=== PATIENT | female | born 1955 | race Hispanic/Latino ===

== ENCOUNTER → 2019-05-22 11:54 | Outpatient (CLI) | payer MEDICARE, SELFPAY ==
[2019-05-22 14:24] LABS: Anion Gap 7 (5-15); BUN 17 mg/dL (7-18); BUN/Creat Ratio 25.1 RATIO (10-20); Calcium,Total 9.4 mg/dL (8.5-10.1); Chloride 109 mmol/L (98-107); Creatinine, Serum 0.68 mg/dL (0.55-1.02); EST Glomerular Filtration Rate 93 mL/min (>60); Est Glom Filt Rate - Afr Amer 112 mL/min (>60); Glucose 92 mg/dL (74-106); Magnesium 2.5 mg/dL (1.6-2.6); Potassium 4.1 mmol/L (3.5-5.1); Sodium Level 144 mmol/L (136-145)
== END ==
PROVIDERS: Family Provider Family Medicine; PCP Family Medicine; Referring Provider Family Medicine; Visit Provider Nurse Practitioner Family
DX: R25.2 Cramp and spasm (principal)
CPT/HCPCS: 36415; 80048; 83735

== ENCOUNTER → 2019-06-18 16:43 | Outpatient (CLI) | payer MEDICARE, MEDICAID, SELFPAY ==
--- NOTE | 2019-06-18 16:53 | RAD_ITS ---
STUDY: X-RAY - RIGHT TIBIA AND FIBULA REASON FOR EXAM: Female, 64 years old. Injury 11 days ago TECHNIQUE: 2 view(s) of the tibia and fibula were obtained. COMPARISON: None. FINDINGS: Normal visualized tibia. Normal visualized fibula. The soft tissue structures are unremarkable. RAD/Tibia & Fibula 2 Views IMPRESSION: Normal x-ray examination of the tibia and fibula. Electronically Signed: Gideon Barrera MD at 23:29 EDT , Service support ,
--- NOTE | 2019-06-18 16:53 | RAD_ITS ---
STUDY: X-RAY - RIGHT ANKLE REASON FOR EXAM: Female, 64 years old. Injury 11 days ago TECHNIQUE: 3 view(s) of the ankle. COMPARISON: None. FINDINGS: Normal visualized distal tibia and fibula. Normal medial and lateral malleoli. Normal tibiotalar articulation and ankle mortise. Normal visualized talus and calcaneus. The visualized subtalar, talonavicular, calcaneocuboid and tarsal articulations are normal. There is soft tissue swelling over the lateral malleolus. RAD/Ankle min 3 Views IMPRESSION: There is no evidence of fracture, dislocation, or significant degenerative disease. There is soft tissue swelling over the lateral malleolus. Electronically Signed: Gideon Barrera MD at 23:28 EDT , Service support ,
== END ==
PROVIDERS: Family Provider Family Medicine; PCP Family Medicine; Referring Provider Family Medicine; Visit Provider Family Medicine
DX: S93.401A Sprain of unspecified ligament of right ankle, initial encounter (principal)
CPT/HCPCS: 73590; 73610

== ENCOUNTER 2019-07-06 16:52 | Emergency (ER) | payer MEDICARE, MEDICAID, SELFPAY ==
[2019-07-06 16:54] VITALS: BP 140/72; PULSE 81; RESP 17; TEMP 36.2; O2SAT 98; BMI 25.5
--- NOTE | 2019-07-06 17:05 | ED.VIS.GEN ---
History of Present Illness Chief Complaint: Lower Extremity Injury Detail of Chief Complaint: Left leg pain Informant: Patient, Family Onset: Today Current Severity: Mild Maximum Severity: Mild Narrative: Patient presents with pain and swollen veins to the left leg. She was on a 2 and half hour car ride today. During the car ride she felt a sharp pain over the lateral proximal calf. She states the veins seem to be swollen more than normal or slightly tender. She denies personal history of blood clot. Her mother did have blood clots. She denies chest pain or shortness of breath. Past Medical History - Allergies and Home Meds Allergies/Adverse Reactions: Allergies Iodinated Contrast Media [CONTRASTS] Allergy (Verified 07/06/19 16:54) Itching pollen extracts Allergy (Verified 07/06/19 16:54) Other sulfamethoxazole [From Bactrim] Adverse Reaction (Verified 07/06/19 16:54) Upset Stomach trimethoprim [From Bactrim] Adverse Reaction (Verified 07/06/19 16:54) Upset Stomach Primary Care Physician: Benito Munoz MD [Primary Care Provider] - Prior records reviewed: Yes Past Medical History: - - Reviewed Lives: Spouse/ Significant Other Smoking Status: Never smoker Review of Systems General: Denies: Chills, Fever Eyes: Denies: Visual changes - bilaterally ENT: Denies: Bilateral ear pain Cardiovascular: Denies: Chest pain, Palpitations Respiratory: Denies: Dyspnea Gastrointestinal: Denies: Abdominal pain, Nausea, Vomiting Musculoskeletal: Reports: Myalgias, Extremity Pain Neurological: Denies: Headache Hematologic: Denies: Easy bruising, Easy bleeding Allergy: Denies: Uticaria Physical Exam Vital Signs/Narrative: Vital Signs Temp Pulse Resp BP Pulse Ox 07/06/19 16:54 97.1 F L 81 17 140/72 H 98 Inital Vital Signs reviewed: Yes General: Well nourished, Well developed Head: Normocephalic ENT: Moist mucous membranes Neck: Supple Cardiovascular: Regular rate, Regular rhythm Respiratory: No distress, CTA bilaterally Abdomen: Soft, Nontender Extremities: Tenderness - Mild tenderness to the lateral proximal left calf with dilated varicose veins. No erythema. She has strong distal pulses. No joint tenderness. Skin: Normal color Neurological: Alert, Oriented x3 Psychological: Normal affect Diagnostic/Tx/Re-eval Laboratory Results 07/06/19 17:10 D-Dimer Quant (PE/DVT) 0.39 - Medical Decision Making Patient presents after hours on a weekend I do not have ultrasound available. D-dimer was obtained and is negative. For peace of mind, patient will return tomorrow for an outpatient ultrasound. In light of her d-dimer being normal we will not give her any anticoagulants at this time. She is happy with this plan. ED Disposition - Plan for ED Patient: Disposition: Home or Assisted Living Diagnosis: Leg edema Instructions: ED Peripheral Edema, Unilateral Referrals: Benito Munoz MD [Primary Care Provider] - Additional Instructions: Return tomorrow for outpatient ultrasound of your leg as discussed.
[2019-07-06 17:33] LABS: D-Dimer Quantitative (DVT/PE) 0.39 FEU/ug/m (0.27-0.49)
--- NOTE | 2019-07-06 17:52 | VDLE_ITS ---
Reason For Study: PAIN RIGHT LEFT CFV is compressible, spontaneous, phasic, GSV is normal. competent and demonstrates normal CFV is compressible, spontaneous, phasic, augmentation. competent, and demonstrates normal Procedure augmentation. Exam performed in department. FV is compressible, spontaneous, phasic, A preliminary report was called and/or faxed competent and demonstrates normal to ED. augmentation. POP V is compressible, spontaneous, phasic, competent and demonstrates normal augmentation. T/P Trunk is compressible. PTV is compressible. Left PeroV at distal T/P Juntion is partially compressible with echoes consistent with acute on chronic localized DVT. The remainder of the PeroV is compressible. Interpretation Summary Acute and chronic deep vein thrombosis is noted in the proximal left peroneal vein. The remainder of the left lower extremity deep venous system is patent and compressible. Valvular competence appears intact within the proximal deep venous system on the left . The left great saphenous vein appears patent and compressible segmentally. Ordering Physician: Sol Holt Referring Physician: MALKA RODRIGUEZ Performed By: Maryse Hensley, LIANGCS, RVT
== END 2019-07-06 18:01 | disposition home or self-care (01) ==
PROVIDERS: Emergency Provider Emergency Medicine; Family Provider Family Medicine; PCP Family Medicine
DX: R60.0 Localized edema (principal); I83.92 Asymptomatic varicose veins of left lower extremity; Z88.1 Allergy status to other antibiotic agents; Z88.2 Allergy status to sulfonamides; Z88.8 Allergy status to other drugs, medicaments and biological substances
CPT/HCPCS: 85379; 93971; 99282

== ENCOUNTER 2019-07-07 12:04 | Emergency (ER) | payer MEDICARE, MEDICAID, SELFPAY ==
[2019-07-06 16:54] VITALS: BMI 25.5
[2019-07-07 12:05] VITALS: BP 140/88; PULSE 84; RESP 16; TEMP 36.6; O2SAT 99; BMI 26.6
--- NOTE | 2019-07-07 12:38 | ED.DCSUM_ITS ---
- ER Visit Summary Date of Service: 07/07/19 Chief Complaint: Clot behind left knee History of Present Illness: The patient is a 64 F who has a #2 department. Patient was lower extremities today. Lab is being performed to test called me and told me the left peroneal vein at the distal junction is partially compressible with echoes consistent with acute on chronic localized DVT. I discussed this with the patient and she is never had a clot before she is aware of. She had no recent travel or surgery. No mobilization. Denies any chest pain or shortness of breath. Physicial Exam : Older female no acute distress. Vital signs are stable. Afebrile. Pulse ox 91% room air no signs of hypoxia. HEENT exam unremarkable. Neck nontender. Lungs clear to auscultation bilaterally. Heart is regular rhythm no murmur. Abdomen is soft and nontender. Normal bowel sounds no perit montoya signs. Extremities moves all 4. Neurovascular intact. Calves nontender without edema or cords. There is a varicose vein in the left lateral aspect of her left knee. Mild tenderness. There is no significant edema. No calf tenderness or cords, no edema. Otherwise. Both feet are neurovascular intact. Neurologically she is awake and alert. Test Results: Noninvasive study left lower extremity shows a left peroneal vein at the distal to UPJ junction partially compressible of echoes consistent with acute on chronic localized DVT per the dental technician instructor. Emergency Department Course and Treatment: Patient has a left lower extremity DVT. She will be started on Xarelto 15 twice daily for 3 weeks. And then started on 20 mg a day. Follow-up with primary care physician. Warned of bleeding risks and if any head injury to be evaluated. Treatment Plan: Xarelto twice daily for 20 days and then 20 mg a day after that. Follow-up with your doctor. Disposition: Discharge Impression: Left lower extremity DVT This note was generated with [employer] dictation software. It may contain incorrect words, spelling, and punctuation that were not noted in review of the chart prior to signing ED Disposition - Plan for ED Patient: Referrals: Benito Muonz MD [Primary Care Provider] -
--- NOTE | 2019-07-07 12:42 | ED.DEP ---
ED Disposition - Plan for ED Patient: Disposition: Home or Assisted Living Instructions: Dvt Prescriptions: Rivaroxaban [Xarelto] 15 mg PO BID.TCU 21 Days #42 tab Prescription Printed Referrals: Benito Munoz MD [Primary Care Provider] - As soon as possible Additional Instructions: You have a blood clot behind her left knee. Due to the blood clot you will be started on a blood thinner called Xarelto. He will take 1 pill twice a day for the first 21 days. Then after day 21 beginning on the you will take 1 pill a day. Initially it will be 15 mg twice a day then the medication be changed on the third week to 20 mg once a day. Call and follow-up with your primary care physician. If you start bleeding and unable to stop the need to return the ER. If you would fall and hit your head he would need to be seen in the ER due to being on a blood thinner.
[2019-07-07] MEDS: Rivaroxaban 15 MG Tablet PO (13:12)
== END 2019-07-07 13:16 | disposition home or self-care (01) ==
PROVIDERS: Emergency Provider Emergency Medicine; Family Provider Family Medicine; PCP Family Medicine
DX: I82.402 Acute embolism and thrombosis of unspecified deep veins of left lower extremity (principal)
CPT/HCPCS: 99283

== ENCOUNTER → 2019-07-25 10:56 | Outpatient (CLI) | payer MEDICARE, MEDICAID, SELFPAY ==
[2019-07-07 12:05] VITALS: BMI 26.6
--- NOTE | 2019-07-25 10:59 | ECHOD_ITS ---
Reason For Study: CP Procedure This was a 2D Doppler, Color Flow transthoracic echocardiogram. Exam performed in department. Left Ventricle Normal LV size. The estimated ejection fraction is 70 %. No evidence for diastolic dysfunction. No regional wall motion abnormalities noted. Right Ventricle Normal right ventricle. Normal systolic function. Atria Normal left atrium. Normal right atrium. No doppler evidence for ASD. Mitral Valve There is no mitral valve stenosis. Mild (1+) mitral valve insufficiency. Tricuspid Valve There is no tricuspid stenosis. Mild tricuspid valve insufficiency. Pulmonary artery systolic pressure is 30 mmHg. Aortic Valve Aortic sclerosis, no stenosis. Trisinus/trileaflet aortic valve. There is no aortic stenosis. Mild (1+) aortic valve insufficiency. Pulmonic Valve There is no pulmonic valvular stenosis. Trivial pulmonic valve insufficiency. Great Vessels Normal aortic root. Pericardium/Pleural Moderate pericardial effusion. There are no echocardiographic indications of cardiac tamponade. MMode/2D Measurements & Calculations LVIDd: 3.3 cm IVSd: 1.2 cm LA dimension: 3.0 cm LVIDs: 1.6 cm LVPWd: 1.2 cm FS: 50.5 % LAV(MOD-bp): 33.6 ml LA A4 area: 13.9 cm2 RA A4 area: 15.6 cm2 LAV(MOD-bp) Indexed: 20.7 ml/m2 LAV(MOD-sp2): 30.6 ml LAV(MOD-sp4): 32.7 ml Time Measurements MV dec time: 0.28 sec Doppler Measurements & Calculations MV E max taurus: 69.0 cm/sec Lat Peak E' Taurus: 9.0 cm/sec Med Peak E' Taurus: 7.6 cm/sec MV A max taurus: 86.8 cm/sec E/E' lat: 7.7 E/E' med: 9.1 MV E/A: 0.80 MV V2 max: 90.6 cm/sec MV P1/2t max taurus: 80.9 cm/sec Ao V2 max: 201.6 cm/sec MV max P.3 mmHg MV P1/2t: 84.7 msec Ao max P.3 mmHg MV V2 mean: 53.8 cm/sec MV dec slope: 279.5 cm/sec2 MV mean P.3 mmHg MVA(P1/2t): 2.6 cm2 MV V2 VTI: 23.7 cm AI max taurus: 504.7 cm/sec LV V1 max: 123.9 cm/sec PA V2 max: 119.4 cm/sec AI max P.9 mmHg LV V1 max P.1 mmHg AI dec slope: 466.8 cm/sec2 AI P1/2t: 316.7 msec TR max taurus: 248.5 cm/sec TR max P.7 mmHg Interpretation Summary The estimated ejection fraction is 70 %. No evidence for diastolic dysfunction. Mild (1+) mitral valve insufficiency. Mild (1+) aortic valve insufficiency. Moderate pericardial effusion. There are no echocardiographic indications of cardiac tamponade. Ordering Physician: Nikita Jacob Referring Physician: Nikita Jacob Performed By: Benjamín Baum RCS
== END ==
PROVIDERS: Family Provider Family Medicine; PCP Family Medicine; Referring Provider Family Medicine; Visit Provider Family Medicine
DX: R07.9 Chest pain, unspecified (principal)
CPT/HCPCS: 93306

== ENCOUNTER → 2019-08-06 10:40 | Outpatient (CLI) | payer MEDICARE, MEDICAID, SELFPAY ==
[2019-08-05 13:33] VITALS: BMI 25.0
[2019-08-06 12:35] LABS: Absolute Lymphocyte Count 1.21 X10^3/uL (0.83-4.51); Basophil# 0.04 X10^3/uL; Basophil% 1.1 % (0-1); Eosinophil# 0.22 X10^3/uL; Eosinophils% 5.9 % (0-5); Hematocrit 40.5 % (37-47); Hemoglobin 12.8 g/dL (12.0-15.0); Lymphocyte # 1.21 X10^3/ul (4.0); Lymphocyte % 32.4 % (19-41); Mean Corp Hgb Conc 31.6 g/dL (32-36); Mean Corpuscular Hgb 28.6 pg (27.0-32.0); Mean Corpuscular Volume 90.6 fL (81-99); Mean Platelet Vol. 9.8 fl (6.2-12.0); Monocyte# 0.28 X10^3/uL; Monocyte% 7.5 % (0-10); NRBC Flagged by Analyzer 0 % (0-5); Neutrophil # 1.99 X10^3/uL (2.7-7.7); Neutrophil % 53.1 % (47-70); Platelet Count 316 K/mm3 (150-450); RBC Distribution Width CV 13.6 % (11.6-14.6); RBC Distribution Width SD 45.4 fl (35.1-43.9); Red Blood Count 4.47 M/mm3 (4.2-5.4); White Blood Count 3.7 K/mm3 (4.4-11.0)
[2019-08-06 12:43] LABS: Erythrocyte Sedimentation Rate 10 mm/hr (0-30)
[2019-08-06 13:07] LABS: Vitamin B12 504 pg/mL (211-911); Vitamin D,25 Hydroxy 31.7 ng/mL (29.95-100.01)
[2019-08-06 13:11] LABS: ALB/GLOB Ratio 1.1 RATIO (0.9-2.4); AST(SGOT) 17 U/L (15-37); Alanine Aminotransfer ALT/SGPT 22 U/L (13-56); Albumin, Serum 3.8 g/dL (3.2-5.0); Alkaline Phosphatase 61 U/L (45-117); Anion Gap 5 (5-15); BUN 17 mg/dL (7-18); BUN/Creat Ratio 24.4 RATIO (10-20); Calcium,Total 8.7 mg/dL (8.5-10.1); Chloride 110 mmol/L (98-107); EST Glomerular Filtration Rate 89 mL/min (>60); Est Glom Filt Rate - Afr Amer 108 mL/min (>60); Ferritin 14 ng/mL (8-252); Globulin 3.4 g/dL (2.2-4.2); Glucose 124 mg/dL (74-106); Iron 106 ug/dL (50-170); Potassium 3.7 mmol/L (3.5-5.1); Protein, Total 7.2 g/dL (6.4-8.2); Sodium Level 141 mmol/L (136-145); Thyroid Stim Hormone (TSH) 1.25 uIU/mL (0.358-3.74)
[2019-08-07 15:22] LABS: ANTINUCLEAR ANTIBODIES DIRECT Negative (Negative)
== END ==
PROVIDERS: Family Provider Family Medicine; PCP Family Medicine; Referring Provider Family Medicine; Visit Provider Family Medicine
DX: R53.83 Other fatigue (principal); L65.9 Nonscarring hair loss, unspecified
CPT/HCPCS: 36415; 80053; 82306; 82607; 82728; 83540; 84443; 85025; 85652; 86038

== ENCOUNTER 2019-08-13 10:30 | Outpatient (RCR) | payer MEDICARE, MEDICAID, SELFPAY ==
--- NOTE | 2019-08-02 13:12 | HP.PTEVAL_ITS ---
Patient's Visit Information SHARON SAMANIEGO is a 64 year old F referred to Physical Therapy by BRI Martinez with a diagnosis of NECK PAIN. Date of Evaluation: 08/02/19 Physical Therapist: Lina Buchanan PT, Cert MDT - Visit Plan Frequency: 2-3x /Week Duration: 4-6 Weeks Plan: ULTRASOUND TO CERVICAL REGION IF OK'D BY TRAVOGRAPH OPERATOR MONDAY. STM AND GENTLE MANUAL TRACTION TOLERATED. POSTURE CORRECTION/STRENGTHENING, INSTRUCTION IN APPROPRIATE BODY MECHANICS AND ACTIVITY MODIFICATIONS. MARGARET UE ROM, STRETCHING AND STRENGTHENING. HEP INSTRUCTION. - Subjective Findings: Work/Leisure: RETIRED. Disability: NO. Present symptoms: NECK AND MARGARET SHOULDER PAIN. HEADACHES. SOMETIMES TREAVELS DOWN BACK. Present since: ABOUT 6 MONTHS. Pain Scale: Worst - 8/10 Least - 3/10. Currently: 7/10. Co mmenced as a result of: NO APPARENT REASON OTHER THAN MAYBE A FALL ABOUT A YEAR AGO - SHOOK BODY. Symptoms at onset: NECK. Worse: DRIVING, LOOKING RIGHT AND LEFT. Better: RELAXING IN SITTING, LYING DOWN, GENTLE MVMT. Disturbed sleep: YES. Previous history/Previous treatment: UNREMARKABLE. Dizziness: YES. Tinnitis: NO. Nausea: NO. Shortness of Breath: YES. Difficulty Swollowing: SOMETIMES. Gait: NORMAL. Accidents: NO. Unexplained weight loss: NO. Imaging: PATIENT DOES NOT THINK SO. PMH/Recent major surgery: LEFT THR ABOUT 2016. *OTHER* RECENT LEFT LE BLOOD CLOT DX'D ABOUT 3 WEEKS AGO. UPCOMING CRISTIANO'T WITH TRAVOGRAPH OPERATOR FOR FLUIT AROUND HEART NEXT MONDAY. ON BLOOD THINNERS. - Objective Sitting Posture/Standing Posture: POOR. FORWARD HEAD AND ROUNDED SHOULDERS. NO TORTICOLLIS. Active Correction of posture: BETTER. Other Observations: INDEP GAIT AND TRANSFERS. Motor deficit: MARGARET UE'S 5/5 EXCEPT SHOULDERS 4/5. Sensory deficit: MARGRAET UE LIGHT TOUCH SENSATION IS INTACT AND SYMMTRICAL. ROM deficit: MARGARET UE'S WFL. Reflexes: 2/3 MARGARET UE'S. Dural Signs: NEGATIVE MARGARET UE'S. Cervical Mvmt Loss: Flex: NIL. Pro: NIL. Ext: MOD. Ret: RIC. RSB: MOD. LSB: MOD. R Rot: MOD. L Rot: MOD. Postural strength: POOR. Palpation: MILD TENDERNESS WITH PALPATION OF THE ENTIRE CERVICAL SPINE REGION. DISTRACTION: DISTRACTION TESTING OF THE CERVICAL SPINE IN SITTING RESULTS IN DECREASED C/O PAIN. - Goals Goal 1:: DECREASE C/O NECK PAIN Goal Time Frame: 4-6 Weeks Goal 2:: IMPROVE LIFTING, READING, SLEEP, WORK, DRIVING AND RECREATIONAL FUNCTION Goal Time Frame: 4-6 Weeks Goal 3:: INSTRUCT IN PROPHYLAXIS Goal Time Frame: 4-6 Weeks - Rehabilitation Potential Rehabilitation Potential: Good - Anticipated Interventions Patient/Client Instruction: Educate patient on: Condition, Plan of Care, Risk Factors, Benefits of Fitness Program For the Purpose of:: To improve self management Therapeutic Exercise to Include: Strength training, Body mechanics, Postural training, Flexibilty training, Active ROM, Scapular Strength/Stabilization For the Purpose of:: To decrease pain, To increase ROM, To improve muscle performance and motor function, To increase tolerance to activity/condition/position, To improve ability of physical actions for home/community/work/leisure Manual Therapy Techniques to Include: Soft tissue mobilization For the Purpose of:: To decrease pain, To increase ROM, To improve nutrient delivery to tissue Cryotherapy (ice pack, ice massage): Yes Thermo therapy (hot pack): Yes Ultrasound (thermal/non thermal): Yes For the Purpose of:: To decrease pain, To decrease swelling/inflammation, To increase ROM, To improve nutrient delivery to tissue Thank you for the opportunity to evaluate your patient. For Medicare and Medicare HMO plans, please review the plan of care and approve it. It will need to be FAXED BACK to us at [phone] for Medicare purposes. For Medicare only, by signing this I certify the plan of care. Please let me know if there are questions or concerns regarding this plan of care. Physician Signature: Date:
--- NOTE | 2019-09-12 15:07 | HP.PT.NRP ---
HP - Discharge Summary (1) - Patient Information SHARON SAMANIEGO was seen in my office for initial evaluation on 08/02/19. The following Plan of Care was established for this patient: Initial Frequency: 2-3x /Week Initial Duration: 4-6 Weeks - Anticipated Interventions Patient/Client Instruction: Educate patient on: Condition, Plan of Care, Risk Factors, Benefits of Fitness Program For the Purpose of:: To improve self management Therapeutic Exercise to Include: Strength training, Body mechanics, Postural training, Flexibilty training, Active ROM, Scapular Strength/Stabilization For the Purpose of:: To decrease pain, To increase ROM, To improve muscle performance and motor function, To increase tolerance to activity/condition/position, To improve ability of physical actions for home/community/work/leisure Manual Therapy Techniques to Include: Soft tissue mobilization For the Purpose of:: To decrease pain, To increase ROM, To improve nutrient delivery to tissue Cryotherapy (ice pack, ice massage): Yes Thermo therapy (hot pack): Yes Ultrasound (thermal/non thermal): Yes For the Purpose of:: To decrease pain, To decrease swelling/inflammation, To increase ROM, To improve nutrient delivery to tissue This patient was last seen in our office 07/31/19. Pertinent comments regarding their Physical therapy will appear below: This patient has not returned to Physical Therapy and is appropriate to return to MD for further follow-up as needed. At this point I will be discontinuing this patient from physical therapy. I would be happy to see this patient again in the future if found appropriate by the physician. Thank you! Lina Buchanan, PT, Cert MDT
== END 2019-08-13 19:00 | disposition home or self-care (01) ==
LOC: PT 10:30
PROVIDERS: Family Provider Family Medicine; PCP Family Medicine; Referring Provider Nurse Practitioner Adult Health; Visit Provider Nurse Practitioner Adult Health
DX: M54.2 Cervicalgia (principal)
CPT/HCPCS: 97035; 97162; 97530

== ENCOUNTER → 2019-09-12 07:01 | Outpatient (CLI) | payer MEDICARE, MEDICAID, SELFPAY ==
[2019-08-05 13:33] VITALS: BMI 25.0
[2019-08-28 10:54] VITALS: BMI 25.0
--- NOTE | 2019-09-12 07:03 | ECHOL_ITS ---
Reason For Study: PERICARDIAL EFFUSION Procedure This was a limited 2D transthoracic echocardiogram. Left Ventricle Normal size and thickness. The estimated ejection fraction is 65 %. No regional wall motion abnormalities noted. Right Ventricle Normal RV size. Normal systolic function. Atria Normal left atrium. Normal right atrium. No doppler evidence for ASD. Aortic Valve Trisinus/trileaflet aortic valve. Great Vessels Normal aortic root. Pericardium/Pleural Small pericardial effusion. MMode/2D Measurements & Calculations LVIDd: 4.2 cm IVSd: 0.85 cm Ao root diam: 3.1 cm LVIDs: 2.4 cm LVPWd: 0.87 cm LA dimension: 3.2 cm FS: 42.2 % LAV(MOD-bp): 38.7 ml LA A4 area: 15.9 cm2 RA A4 area: 15.9 cm2 LAV(MOD-bp) Indexed: 23.8 ml/m2 LAV(MOD-sp2): 30.0 ml LAV(MOD-sp4): 45.7 ml Interpretation Summary The estimated ejection fraction is 65 %. Small pericardial effusion. Limited echo done to evaluate pericardial effusion shows no significant change in effusion. Ordering Physician: Kris Barrera Referring Physician: Moshe Jacob Performed By: Ely Moeller, KYLER, RVT
--- NOTE | 2019-09-17 17:10 | STRESSREP ---
Stress Test Report Date: [09/12/2019] Procedure: Pharmacologic stress nuclear imaging study Indications: Chest pain Consent: Per the patient Procedure: The patient underwent pharmacologic (Regadenoson) evaluation with a peak heart rate of 96 beats per minute (62 %predicted maximal heart rate) and a peak blood pressure of 130/74 mmHg. The baseline ECG demonstrated normal sinus rhythm. EKG during lexiscan infusion revealed no significant ischemic changes. EKG post infusion revealed no significant ischemic changes [There were no cardiac dysrhythmias pretest, during pharmacologic infusion, or recovery]. [There was no complaint of chest discomfort during pharmacologic infusion or recovery]. The examination was discontinued secondary to completion of protocol. Impression: 1. Lexiscan stress test test is negative for Lexiscan infusion induced EKG changes of ischemia. 2. Lexiscan stress test test is negative for Lexiscan infusion induced chest pain. 3. Results of the nuclear portion of the test is as below Myocardial perfusion imaging study: Technique: The patient was injected with 10.8 millicuries of technetium 99m Cardiolite and subsequently rest SPECT Cardiolite nuclear imaging was obtained in the horizontal long, vertical long, and short axis views. The patient underwent pharmacologic (Regadenoson) evaluation. Please see above for details. The patient was injected with 32.1 millicuries of technetium 99m Cardiolite and subsequently stress SPECT Cardiolite nuclear imaging was obtained in the horizontal long, vertical long, and short axis views. A gated Cardiolite study at peak stress was obtained. Interpretation: Rest and stress SPECT Cardiolite nuclear imaging status post realignment, normalization, and attenuation correction demonstrate normal myocardial radioisotope uptake. Gated images reveal no significant regional wall motion abnormalities. The reported LVEF is greater than 70 %. Impression: 1. There is no evidence of significant ischemia or infarction. 2. Estimated ejection fraction is greater than 70%. This note was generated with [employer] software. It may contain incorrect words, spelling, and punctuation that were not noted in checking the note before signing.
== END ==
PROVIDERS: Family Provider Family Medicine; PCP Family Medicine; Referring Provider Specialist; Visit Provider Specialist
DX: R07.9 Chest pain, unspecified (principal); I31.3 Pericardial effusion (noninflammatory); I35.1 Nonrheumatic aortic (valve) insufficiency
CPT/HCPCS: 78452; 93017; 93308; A9500; A4216; J2785

== ENCOUNTER → 2019-10-02 12:40 | Outpatient (CLI) | payer MEDICARE, MEDICAID, SELFPAY ==
[2019-09-18 11:27] VITALS: BMI 25.2
[2019-10-02 14:25] LABS: Absolute Neutrophil Count 2.4 X10^3/uL (2.0-7.7); Basophil# 0.03 X10^3/uL; Basophil% 0.7 % (0-1); Eosinophil# 0.12 X10^3/uL; Eosinophils% 2.9 % (0-5); Hematocrit 40.8 % (37-47); Hemoglobin 13.5 g/dL (12.0-15.0); Lymphocyte % 28.9 % (19-41); Mean Corp Hgb Conc 33.1 g/dL (32-36); Mean Corpuscular Hgb 29.9 pg (27.0-32.0); Mean Corpuscular Volume 90.3 fL (81-99); Mean Platelet Vol. 9.9 fl (6.2-12.0); Monocyte# 0.35 X10^3/uL; Monocyte% 8.4 % (0-10); NRBC Flagged by Analyzer 0 % (0-5); Neutrophil # 2.44 X10^3/uL (2.7-7.7); Neutrophil % 58.9 % (47-70); Platelet Count 289 K/mm3 (150-450); RBC Distribution Width SD 46.3 fl (35.1-43.9); Red Blood Count 4.52 M/mm3 (4.2-5.4); White Blood Count 4.2 K/mm3 (4.4-11.0)
[2019-10-02 14:30] LABS: Prothrombin Time (Protime)PT. 13.3 SECONDS (11.7-14.9)
[2019-10-02 14:31] LABS: Erythrocyte Sedimentation Rate 13 mm/hr (0-30); Partial Thromboplast Time 25.8 Seconds (24.1-36.2)
[2019-10-02 14:54] LABS: Vitamin D,25 Hydroxy 35.6 ng/mL (29.95-100.01)
[2019-10-02 14:57] LABS: Anion Gap 6 (5-15); BUN 18 mg/dL (7-18); BUN/Creat Ratio 27.1 RATIO (10-20); CRP < 2.90 mg/L (0.0-3.0); Calcium,Total 8.6 mg/dL (8.5-10.1); Chloride 108 mmol/L (98-107); Creatinine, Serum 0.66 mg/dL (0.55-1.02); EST Glomerular Filtration Rate 94 mL/min (>60); Est Glom Filt Rate - Afr Amer 114 mL/min (>60); Ferritin 37 ng/mL (8-252); Glucose 112 mg/dL (74-106); Potassium 3.9 mmol/L (3.5-5.1); Rheumatoid Factor < 10.0 IU/mL (<15); Sodium Level 139 mmol/L (136-145)
[2019-10-05 13:16] LABS: ANTINUCLEAR ANTIBODIES DIRECT Positive (Negative)
[2019-10-08 04:07] LABS: Complement CH50 56 U/mL (42-999999); Dilute Prothrombin Time (dPT) 38.7 sec (0.0-55.0); Dilute Russell Viper Venom 33.7 sec (0.0-47.0); PTT-LA 29.4 sec (0.0-51.9); Thrombin Time 18.7 sec (0.0-23.0); dPT Confirm Ratio 1.03 Ratio (0.00-1.40)
[2019-10-08 12:54] LABS: Anti-Cardiolipin Ab, IgG, Qn < 9 GPL U/mL (0-14); Anti-Cardiolipin Ab, IgM, Qn < 9 MPL U/mL (0-12); Antithrombin 3 Function 105 % (75-135); Interpretation Comment: (.); Protein C Antigen 113 % (60-150); Protein S, Free 104 % (57-157); Protein S, Total 81 % (60-150)
== END ==
PROVIDERS: Family Provider Family Medicine; PCP Family Medicine; Referring Provider Family Medicine; Visit Provider Family Medicine
DX: I82.409 Acute embolism and thrombosis of unspecified deep veins of unspecified lower extremity (principal); R53.83 Other fatigue; E61.1 Iron deficiency; I31.3 Pericardial effusion (noninflammatory); E55.9 Vitamin D deficiency, unspecified
CPT/HCPCS: 36415; 80048; 82306; 82728; 84443; 85025; 85300; 85302; 85305; 85306; 85610; 85652; 85730; 86038; 86140; 86147; 86162; 86431

== ENCOUNTER → 2019-12-06 15:53 | Outpatient (CLI) | payer MEDICARE, SELFPAY ==
[2019-09-18 11:27] VITALS: BMI 25.2
--- NOTE | 2019-12-06 15:55 | CT_ITS ---
STUDY: CTA CHEST REASON FOR EXAM: Female, 64 years old. REPEAT Pericardial effusions RADIATION DOSAGE (If Supplied By Facility): CTDIvol = ( 6.92 ) mGy, DLP = ( 155.02 ) mGycm TECHNIQUE: The examination was performed with the intravenous administration of 750 cc isovue 370. Post-processing of the angiographic images was performed, with multiplanar reformation and 3D reconstruction. Individualized dose optimization techniques were used for this CT. COMPARISON: None. FINDINGS: Normal enhancement of the main pulmonary artery and right and left pulmonary arteries. Normal enhancement of the bilateral peripheral pulmonary arteries. There is no demonstrated pulmonary embolism. Normal thoracic aorta and visualized great vessels. There is no demonstrated aortic dissection. Normal heart and pericardium. Normal mediastinum. Normal hilar regions. Normal visualized trachea and bronchi. The lungs are well expanded. Minimal right upper lobe basilar linear atelectatic changes are present. Normal pleura. Normal chest wall structures. Demineralized thoracic spine is present. Normal visualized upper abdomen. CT/CTA Chest W/WO Contrast IMPRESSION: No evidence of pulmonary embolism or aortic dissection. No evidence of acute cardiopulmonary process or focal consolidation. Electronically Signed: Salomon Gurrola DO at 9:04 EST , Service support ,
== END ==
PROVIDERS: PCP Family Medicine; Referring Provider Specialist; Visit Provider Specialist
DX: I31.3 Pericardial effusion (noninflammatory) (principal); I35.1 Nonrheumatic aortic (valve) insufficiency; R00.2 Palpitations; R07.89 Other chest pain
CPT/HCPCS: 71275; Q9967

== ENCOUNTER 2020-01-04 04:34 | Emergency (ER) | payer MEDICARE, SELFPAY ==
[2019-12-07 11:45] VITALS: BMI 25.2
[2020-01-04 04:36] VITALS: BP 163/71; PULSE 78; RESP 18; TEMP 36.8; O2SAT 97; BMI 23.7
--- NOTE | 2020-01-04 05:11 | CT_ITS ---
STUDY: CT ABDOMEN AND PELVIS WITHOUT CONTRAST REASON FOR EXAM: Female, 64 years old. LBP OVERNIGHT/RIGHT FLANK PAIN H/O KIDNEY STONES. RADIATION DOSAGE (If Supplied By Facility): CTDIvol = ( 6.20 ) mGy, DLP = ( 283.51 ) mGycm TECHNIQUE: Transaxial images were obtained from the dome of the diaphragm to the symphysis pubis without oral contrast, and without intravenous contrast. Sagittal and coronal images were reconstructed. Individualized dose optimization techniques were used for this CT. COMPARISON: None. FINDINGS: Bibasilar atelectasis. Pericardial effusion. 4 cm left hepatic lobe cyst. Normal gallbladder and extrahepatic biliary system. Normal spleen. Normal pancreas. Normal bilateral adrenal glands. Normal right kidney. Normal left kidney. Normal visualized stomach. Normal small intestine. Constipation. The appendix is visualized and appears normal. Normal abdominal aorta. Normal inferior vena cava. Normal retroperitoneum. Normal urinary bladder. Normal abdominal wall. Grade 1 L5-S1 anterolisthesis. Left hip arthroplasty. CT/Abdomen/Pelvis without Cont IMPRESSION: No evidence of appendicitis, acute intestinal pathology, or acute obstructive uropathy. Probable constipation. Pericardial effusion. Electronically Signed: Melvin James MD at 6:00 EST Tel , Service support ,
[2020-01-04] MEDS: Ondansetron 4 MG/2 ML Vial IV (05:23)
[2020-01-04] MEDS: Ketorolac 30 MG/ML Syringe 15 MG IV (05:23)
[2020-01-04 05:29] LABS: Basophil# 0.03 X10^3/uL; Basophil% 0.8 % (0-1); Eosinophils% 5.4 % (0-5); Hematocrit 38.1 % (37-47); Hemoglobin 12.5 g/dL (12.0-15.0); Lymphocyte % 29.8 % (19-41); Mean Corp Hgb Conc 32.8 g/dL (32-36); Mean Corpuscular Volume 91.6 fL (81-99); Mean Platelet Vol. 9.2 fl (6.2-12.0); Monocyte# 0.39 X10^3/uL; Monocyte% 10.6 % (0-10); NRBC Flagged by Analyzer 0 % (0-5); Neutrophil # 1.96 X10^3/uL (2.7-7.7); Neutrophil % 53.1 % (47-70); Platelet Count 275 K/mm3 (150-450); RBC Distribution Width CV 12.8 % (11.6-14.6); RBC Distribution Width SD 43.1 fl (35.1-43.9); Red Blood Count 4.16 M/mm3 (4.2-5.4); White Blood Count 3.7 K/mm3 (4.4-11.0)
[2020-01-04 05:37] LABS: Bacteria 0 SEEN /hpf (None Seen); Mucous, Urine 0 SEEN /hpf (<or=2+); Squamous Epithelial Cells - UA 0 SEEN /hpf (5-10); White Blood Cells 0 SEEN /hpf (0-5)
[2020-01-04 05:42] LABS: Anion Gap 6 (5-15); BUN 14 mg/dL (7-18); BUN/Creat Ratio 23.1 RATIO (10-20); Calcium,Total 8.5 mg/dL (8.5-10.1); Chloride 109 mmol/L (98-107); EST Glomerular Filtration Rate 105 mL/min (>60); Est Glom Filt Rate - Afr Amer 127 mL/min (>60); Estimated Creatinine Clearance 43.77 ml/min; Glucose 100 mg/dL (74-106); Potassium 3.4 mmol/L (3.5-5.1); Sodium Level 142 mmol/L (136-145)
[2020-01-04 05:45] LABS: Color, Urine Yellow (Yellow); Glucose, Dipstick Normal (Normal); Ketone-Dipstick Negative (Negative); Leukocyte Esterase-Dipstick Negative /ul (Negative); Nitrite-Dipstick Negative (Negative); Occult Blood-Urine Negative /ul (Negative); Protein-Dipstick Negative (Negative); Urine Bilirubin Dipstick Negative (Negative); Urine Clarity Clear (Clear); Urine Urobilinogen Normal (Normal)
[2020-01-04 06:08] LABS: Red Blood Cells-Urine 0-5 SEEN /hpf (0-5)
--- NOTE | 2020-01-04 06:25 | ED.DCSUM_ITS ---
History of Present Illness Chief Complaint: Back Narrative: Patient complaining of back pain and abdominal pain. Patient reports that this evening she had a onset of right flank and right abdominal pain. She reports that this came on in a atraumatic fashion and was not associated with falls lifting twisting pushing pulling or any sort of increased activity. She describes it as a waxing and waning type pain that does not really seem to have any sort of exacerbating relieving factors. She denies any fevers nausea vomiting diarrhea dysuria or constipation associated with this. Last normal bowel movement was 2 days ago. Patient reports that she is never really had any prior similar episodes. Only abdominal surgery in the past was a 30 some years ago. No history of kidney stones. She denies any urinary signs or symptoms such as increased or decreased urination dysuria or hematuria. Review of systems otherwise negative. Past Medical History - Allergies and Home Meds Allergies/Adverse Reactions: Allergies Iodinated Contrast Media [CONTRASTS] Allergy (Verified 01/04/20 04:35) Itching pollen extracts Allergy (Verified 01/04/20 04:35) Other sulfamethoxazole [From Bactrim] Adverse Reaction (Verified 01/04/20 04:35) Upset Stomach trimethoprim [From Bactrim] Adverse Reaction (Verified 01/04/20 04:35) Upset Stomach Primary Care Physician: Nikita Jacob MD [Primary Care Provider] - Smoking Status: Never smoker Review of Systems All systems negative except as indicated General: Denies: Chills, Fever, Sweats Eyes: Denies: Visual changes - bilaterally, Diplopia ENT: Denies: Rhinorrhea, Sore throat Cardiovascular: Denies: Chest pain, Palpitations Respiratory: Denies: Dyspnea, Cough, Dyspnea on exertion Gastrointestinal: Reports: Abdominal pain Genitourinary: Denies: Dysuria, Hematuria, Frequency Musculoskeletal: Reports: Back pain Skin: Denies: Rash, Wounds Neurological: Denies: Headache, Weakness, Numbness Physical Exam Vital Signs/Narrative: Vital Signs Temp Pulse Resp BP Pulse Ox 01/04/20 04:36 98.2 F 78 18 163/71 H 97 Inital Vital Signs reviewed: Yes General: Well nourished, Well developed, No Acute Distress Head: Normocephalic, Atraumatic Eyes: Perrl, EOMI ENT: Moist mucous membranes, No rhinorrhea Neck: Supple, Nontender Cardiovascular: Regular rate, Regular rhythm, No murmurs Respiratory: No distress, CTA bilaterally, Chest nontender Abdomen: Soft, Nondistended, Normal bowel sounds, Tender - Very minimal right- sided CVA tenderness to percussion and right mid abdominal tenderness to palpation. No guarding or rebound tenderness noted. Back: Nontender, Normal Inspection Extremities: Nontender, No edema Skin: Normal color, No rash Neurological: Alert, Oriented x3, Cranial nerves II-XII grossly intact, Normal Strength, Normal Sensation Psychological: Normal affect, Normal Mood Diagnostic/Tx/Re-eval - Medical Decision Making CBC demonstrates mild leuko-suppression with a white blood cell count of 3.4. Chemistry unremarkable. Urinalysis shows no evidence of blood or infection. CT abdomen and pelvis was performed which shows normal appendix, no evidence of obstructive uropathy, and does show some evidence of constipation. Patient was given Toradol in the emergency department as well as Zofran with symptomatic improvement. At this point I believe the patient's pain likely is secondary to intestinal spasm from constipation. Patient will be given a dose of lactulose in the emergency department and will be sent home with a short course of the same. She was given signs and symptoms for which to return. She voiced understanding of this and the patient was discharged in stable condition. ED Disposition - Plan for ED Patient: Disposition: Home or Assisted Living Diagnosis: Constipation Instructions: CONSTIPATION (Adult) Prescriptions: Lactulose 10 gm PO DAILY #60 ml Prescription Printed Referrals: Nikita Jacob MD [Primary Care Provider] - 3-5 Days if not improving
[2020-01-04 06:38] VITALS: BP 122/68; PULSE 80; RESP 15; O2SAT 97
[2020-01-04] MEDS: Lactulose 20 GM/30 ML UDC PO (06:38)
== END 2020-01-04 06:39 | disposition home or self-care (01) ==
PROVIDERS: Emergency Provider Emergency Medicine; PCP Family Medicine
DX: K59.00 Constipation, unspecified (principal); Z87.442 Personal history of urinary calculi; Z88.1 Allergy status to other antibiotic agents; Z88.2 Allergy status to sulfonamides; Z88.8 Allergy status to other drugs, medicaments and biological substances
CPT/HCPCS: 74176; 80048; 81001; 85025; 96374; 96375; 99283; J7030; J2405

== ENCOUNTER → 2020-05-27 11:57 | Outpatient (CLI) | payer MEDICARE, MEDICAID, SELFPAY ==
--- NOTE | 2020-05-27 12:01 | RAD_ITS ---
STUDY: X-RAY - CERVICAL SPINE REASON FOR EXAM: Female, 65 years old. Neck pain, no trauma TECHNIQUE: 6 view(s) of the cervical spine were obtained. COMPARISON: None FINDINGS: Normal anterior atlantoaxial articulation. Normal odontoid process. There is straightening of the normal cervical lordosis. There is multi-level endplate spondylosis. There is multi-level degenerative disc disease with multilevel disc space narrowing. There is multi-level osseous foraminal stenosis. The soft tissue structures are unremarkable. RAD/Cerv Spine 4 or 5 Views IMPRESSION: Multilevel degenerative changes, no acute findings Electronically Signed: Laith Fulton MD at 13:09 EDT , Service support ,
== END ==
PROVIDERS: PCP Family Medicine; Referring Provider Family Medicine; Visit Provider Family Medicine
DX: M54.2 Cervicalgia (principal)
CPT/HCPCS: 72050

== ENCOUNTER 2020-07-02 16:00 | Outpatient (RCR) | payer MEDICARE, MEDICAID, SELFPAY ==
--- NOTE | 2020-06-03 12:50 | HP.PTEVAL_ITS ---
Patient's Visit Information SHARON SAMANIEGO is a 65 year old F referred to Physical Therapy by Dr. Nikita Jacob MD with a diagnosis of Cervical DDD. Date of Evaluation: 06/03/20 Physical Therapist: Ronda Jacques DPT - Visit Plan Frequency: 2x /Week Duration: 4 Weeks Plan: Modality of Ultrasound- STM and distraction with possible need for cervical traction- scapular s/s - Subjective Patient reports that 9-10 months ago she started having pain in her head and has now gone into her right side of her back and into the upper traps. The pain comes and goes- she feels 90% good right now but does have mild discomfort. Agg: driving and turning, vacuuming, dusting and looking up for a long periods of time, pulling weeds. Eases: rest, anti-inflammatory (Ibuprofen), warm compress. She did have x-rays which showed DDD. Was given a muscle relaxer- she only takes it at night. Right hand dominate. Pain radiates to the fingers. No N/T in the hands. Describes the pain as sharp Worst: 8/10 Best: 0/10. Headaches always on the right side. No blurred vision or dizziness. Sleep: sometimes- does not use a pillow- has always been that way. Has not noticed no issues with finger dexterity or truck driver flatbed strength. PMHx/Meds: no change since seeing Dr. Jacob - Objective Posture: Fh, RS- can correct but does not maintain. Gait: no deviation noted- good arm swing and trunk rotation. Sensation: WNL. Palpation: tender along cervical spine- upper trap to the tip of the acromion- medial border of the scapula- infraspinutus, bicpital groove. ROM: finger dexterity, wrist, elbow: WNL, Shoulder: WNl with pain at end range flexion/abd. Cervical spine: WNL reports tightness in SB to the right. Strength: Pattern Changer And Repairer: good, elbow: 5/5, Shoulder: 4+/5, Scap: fair minus, Cervical Isometrics: 4+/5. Special Test: Distraction: diminished s/s, Spurlings: positive, Neer: positive, Arrieta Arash: positive, Empty Can: negative, Dural Signs: negative - Goals Goal 1:: Patient will be I with HEP and progression Goal Time Frame: 4-6 Weeks Goal 2:: Patient will maintain proper posture t/o tx session to demo increased scap s/s Goal Time Frame: 4-6 Weeks Goal 3:: Patient will report 0/10 pain for 1 week Goal Time Frame: 4-6 Weeks - Rehabilitation Potential Physical Therapy Diagnosis: Patient presents with hypomobility- she has decreased ROM, scap s/s, flex and muscular endurance leading to poor posture and increased pain with ADL's. Rehabilitation Potential: Fair - Anticipated Interventions Patient/Client Instruction: Educate patient on: Benefits of Fitness Program Therapeutic Exercise to Include: Strength training, Endurance training, Balance training, Coordination, Agility training, Body mechanics, Postural training, Flexibilty training, Gait and locomotor training, Neuromotor development, Passive ROM, Active ROM, Dynamic Lumbar Stabilization, Scapular Strength/Stabilization For the Purpose of:: To improve muscle performance and motor function Manual Therapy Techniques to Include: Mobilization, Manipulation, Functional dry needling, Soft tissue mobilization TENS: Yes Cryotherapy (ice pack, ice massage): Yes Thermo therapy (hot pack): Yes Ultrasound (thermal/non thermal): Yes Intermittent cervical traction: Yes Thank you for the opportunity to evaluate your patient. For Medicare and Medicare HMO plans, please review the plan of care and approve it. It will need to be FAXED BACK to us at [phone] for Medicare purposes. For Medicare only, by signing this I certify the plan of care. Please let me know if there are questions or concerns regarding this plan of care. Physician Signature: Date:
--- NOTE | 2020-07-02 16:20 | HP.PTREVAL_ITS ---
Dr. Nikita Jacob MD, It has been my pleasure to treat SHARON SAMANIEGO over the last 7 visits for Cervical DDD. Please see the progress note below for an update on the physical therapy plan of care! Subjective: Patient reports that she is better by 70%. She still has some discomfort Objective/Function: Posture: Fh, RS- can correct but does not maintain. Gait: no deviation noted- good arm swing and trunk rotation. Sensation: WNL. Palpation: tender along cervical spine- upper trap to the tip of the acromion- medial border of the scapula- infraspinutus, bicpital groove. ROM: finger dexterity, wrist, elbow: WNL, Shoulder: WNl no pain. Cervical spine: WNL. Strength: Senior Field Service Engineer: good, elbow: 5/5, Shoulder: 4+/5, Scap: fair minus, Cervical Isometrics: 4+/5. Special Test: Distraction: diminished s/s, Spurlings: positive, Neer: positive, Arrieta Arash: positive, Empty Can: negative, Dural Signs: negative Plan Plan: Modality of Ultrasound- STM and distraction with possible need for cervical traction- scapular s/s- Continue 2x a week for 2 weeks then FU with Ronda Goals Goal 1:: Patient will be I with HEP and progression Goal Time Frame: 4-6 Weeks Goal Progress: Progressing Goal 2:: Patient will maintain proper posture t/o tx session to demo increased scap s/s Goal Time Frame: 4-6 Weeks Goal Progress: Progressing Goal 3:: Patient will report 0/10 pain for 1 week Goal Time Frame: 4-6 Weeks Goal Progress: Progressing Anticipated Interventions Patient/Client Instruction: Educate patient on: Benefits of Fitness Program Therapeutic Exercise to Include: Strength training, Endurance training, Balance training, Coordination, Agility training, Body mechanics, Postural training, Flexibilty training, Gait and locomotor training, Neuromotor development, Passive ROM, Active ROM, Dynamic Lumbar Stabilization, Scapular Strength/Stabilization For the Purpose of:: To improve muscle performance and motor function Manual Therapy Techniques to Include: Mobilization, Manipulation, Functional dry needling, Soft tissue mobilization TENS: Yes Cryotherapy (ice pack, ice massage): Yes Thermo therapy (hot pack): Yes Ultrasound (thermal/non thermal): Yes Intermittent cervical traction: Yes Please do not hesitate to contact me at [phone] by phone or if you have questions or concerns regarding this new plan of care! Sincerely, JUSTIN SahaT
--- NOTE | 2020-08-03 16:31 | HP.PT.NRP ---
SHARON SAMANIEGO was seen in my office for initial evaluation on 06/03/20. The following Plan of Care was established for this patient: Initial Frequency: 2x /Week Initial Duration: 4 Weeks Patient/Client Instruction: Educate patient on: Benefits of Fitness Program Therapeutic Exercise to Include: Strength training, Endurance training, Balance training, Coordination, Agility training, Body mechanics, Postural training, Flexibilty training, Gait and locomotor training, Neuromotor development, Passive ROM, Active ROM, Dynamic Lumbar Stabilization, Scapular Strength/Stabilization For the Purpose of:: To improve muscle performance and motor function Manual Therapy Techniques to Include: Mobilization, Manipulation, Functional dry needling, Soft tissue mobilization TENS: Yes Cryotherapy (ice pack, ice massage): Yes Thermo therapy (hot pack): Yes Ultrasound (thermal/non thermal): Yes Intermittent cervical traction: Yes This patient was last seen in our office . Pertinent comments regarding their Physical therapy will appear below: Patient has not returned to PT in over 4 weeks- appropriate for d/c and return to MD for further evaluation as needed. At this point I will be discontinuing this patient from physical therapy. I would be happy to see this patient again in the future if found appropriate by the physician. Thank you! Ronda Jacques DPT
== END 2020-07-02 19:00 | disposition home or self-care (01) ==
LOC: PT 16:00
PROVIDERS: PCP Family Medicine; Referring Provider Family Medicine; Visit Provider Family Medicine
DX: M50.30 Other cervical disc degeneration, unspecified cervical region (principal)
CPT/HCPCS: 97035; 97110; 97140; 97162; 97164

== ENCOUNTER → 2020-07-03 15:43 | Outpatient (CLI) | payer MEDICARE, MEDICAID, SELFPAY | PROVIDERS: PCP Family Medicine; Referring Provider Family Medicine; Visit Provider Family Medicine | DX: R05 Cough (principal) | CPT/HCPCS: 87635; U0003 ==

== ENCOUNTER → 2020-12-02 09:36 | Outpatient (CLI) | payer MEDICARE, MEDICAID, SELFPAY ==
[2020-12-02 12:22] LABS: Erythrocyte Sedimentation Rate 9 mm/hr (0-30)
[2020-12-02 12:25] LABS: Hematocrit 40.9 % (37-47); Hemoglobin 13.4 g/dL (12.0-15.0); Mean Corp Hgb Conc 32.8 g/dL (32-36); Mean Corpuscular Hgb 29.6 pg (27.0-32.0); Mean Corpuscular Volume 90.5 fL (81-99); Platelet Count 322 K/mm3 (150-450); RBC Distribution Width CV 13.4 % (11.6-14.6); RBC Distribution Width SD 45.1 fl (35.1-43.9); Red Blood Count 4.52 M/mm3 (4.2-5.4); White Blood Count 3.8 K/mm3 (4.4-11.0)
[2020-12-02 12:51] LABS: Vitamin B12 512 pg/mL (211-911); Vitamin D,25 Hydroxy 30.9 ng/mL
[2020-12-02 13:47] LABS: AST(SGOT) 15 U/L (15-37); Alanine Aminotransfer ALT/SGPT 23 U/L (13-56); Albumin, Serum 3.6 g/dL (3.2-5.0); Alkaline Phosphatase 67 U/L (45-117); Anion Gap 5 (5-15); BUN 15 mg/dL (7-18); BUN/Creat Ratio 23.5 RATIO (10-20); Calcium,Total 8.8 mg/dL (8.5-10.1); Chloride 110 mmol/L (98-107); Cholesterol 218 mg/dL (200); Creatinine, Serum 0.64 mg/dL (0.55-1.02); EST Glomerular Filtration Rate 99 mL/min (>60); Est Glom Filt Rate - Afr Amer 119 mL/min (>60); Ferritin 15 ng/mL (8-252); Globulin 3.6 g/dL (2.2-4.2); Glucose 93 mg/dL (74-106); High Density Lipoprotein 100 mg/dL; Iron 83 ug/dL (50-170); Potassium 3.9 mmol/L (3.5-5.1); Protein, Total 7.2 g/dL (6.4-8.2); Sodium Level 141 mmol/L (136-145); Thyroid Stim Hormone (TSH) 1.75 uIU/mL (0.358-3.74); Triglycerides 54 mg/dL; Very Low Density Lipoprotein 11 mg/dL (5-40)
[2020-12-03 15:45] LABS: ANTINUCLEAR ANTIBODIES DIRECT Negative (Negative)
[2020-12-06 07:20] LABS: Zinc, Plasma or Serum 74 ug/dL (44-115)
== END ==
PROVIDERS: PCP Family Medicine; Referring Provider Family Medicine; Visit Provider Family Medicine
DX: L65.9 Nonscarring hair loss, unspecified (principal); R73.01 Impaired fasting glucose; R76.8 Other specified abnormal immunological findings in serum
CPT/HCPCS: 36415; 80053; 80061; 82306; 82607; 82728; 83540; 84425; 84443; 84630; 85027; 85652; 86038

== ENCOUNTER → 2021-05-17 17:16 | Outpatient (CLI) | payer MEDICARE, MEDICAID, SELFPAY ==
--- NOTE | 2021-05-17 17:15 | RAD_ITS ---
STUDY: X-RAY - LEFT KNEE REASON FOR EXAM: Female, 66 years old. Left knee pain. TECHNIQUE: 4 view(s) of the knee. COMPARISON: None. FINDINGS: Generalized osteopenia. Mild medial compartmental arthrosis. Normal lateral compartment. Mild patellofemoral compartmental arthrosis. The soft tissue structures are unremarkable. RAD/Knee 4 or More Views IMPRESSION: Osteopenia with mild medial and patellofemoral compartmental arthrosis. No acute finding. Electronically Signed: Carmine Hearn MD at 13:44 EDT , Service support ,
== END ==
PROVIDERS: PCP Family Medicine; Referring Provider Family Medicine; Visit Provider Family Medicine
DX: M25.562 Pain in left knee (principal)
CPT/HCPCS: 73564

== ENCOUNTER → 2021-06-03 10:45 | Outpatient (CLI) | payer MEDICARE, MEDICAID, SELFPAY ==
--- NOTE | 2021-06-03 10:48 | RAD_ITS ---
STUDY: X-RAY - PELVIS AND BILATERAL HIPS REASON FOR EXAM: Female, 66 years old. HX OF HIP REPLACEMENT TECHNIQUE: AP view of the pelvis.? 2 views of the right hip, and 2 views of the left hip were obtained. COMPARISON: 01/04/2020 FINDINGS: There is a non-specific bowel gas pattern. Normal visualized soft tissue structures. There are degenerative changes of the sacroiliac joints. Normal bilateral superior and inferior pubic rami. Normal pubic symphysis. Normal bilateral ischial tuberosities. There are degenerative changes of the right hip characterized by joint space narrowing and subchondral sclerosis. There is a stable left hip arthroplasty grossly anatomic in alignment. RAD/Hips B/L min 2 views w/ Pelvis IMPRESSION: Stable left hip arthroplasty, grossly anatomic in alignment. Degenerative changes. Electronically Signed: Vicky Sorenson MD at 17:18 EDT Tel , Service support ,
== END ==
PROVIDERS: PCP Family Medicine; Referring Provider Family Medicine; Visit Provider Family Medicine
DX: Z96.642 Presence of left artificial hip joint (principal)
CPT/HCPCS: 73521

== ENCOUNTER → 2022-07-19 | Outpatient (CLI) | payer MEDICARE, MEDICAID, SELFPAY ==
[2022-07-19 12:23] LABS: Absolute Neutrophil Count 1.9 X10^3/uL (2.0-7.7); Basophil# 0.04 X10^3/uL; Basophil% 1.2 % (0-1); Eosinophil# 0.17 X10^3/uL; Erythrocyte Sedimentation Rate 13 mm/hr (0-30); Hematocrit 38.1 % (37-47); Hemoglobin 12.6 g/dL (12.0-15.0); Lymphocyte % 29.2 % (19-41); Mean Corp Hgb Conc 33.1 g/dL (32-36); Mean Corpuscular Hgb 30.2 pg (27.0-32.0); Mean Corpuscular Volume 91.4 fL (81-99); Mean Platelet Vol. 9.6 fl (6.2-12.0); Monocyte# 0.32 X10^3/uL; Monocyte% 9.3 % (0-10); NRBC Flagged by Analyzer 0 % (0-5); Neutrophil % 55.3 % (47-70); Platelet Count 291 K/mm3 (150-450); RBC Distribution Width CV 13.2 % (11.6-14.6); RBC Distribution Width SD 44.8 fl (35.1-43.9); Red Blood Count 4.17 M/mm3 (4.2-5.4); White Blood Count 3.4 K/mm3 (4.4-11.0)
[2022-07-19 12:46] LABS: Vitamin D,25 Hydroxy 46.2 ng/mL
[2022-07-19 13:00] LABS: AST(SGOT) 20 U/L (15-37); Alanine Aminotransfer ALT/SGPT 22 U/L (13-56); Albumin, Serum 3.5 g/dL (3.2-5.0); Alkaline Phosphatase 68 U/L (45-117); Anion Gap 5 (5-15); BUN 12 mg/dL (7-18); BUN/Creat Ratio 19.9 RATIO (10-20); Calcium,Total 8.9 mg/dL (8.5-10.1); Chloride 109 mmol/L (98-107); Cholesterol 205 mg/dL (200); EST Glomerular Filtration Rate 105 mL/min (>60); Est Glom Filt Rate - Afr Amer 127 mL/min (>60); Globulin 3.5 g/dL (2.2-4.2); Glucose 99 mg/dL (74-106); High Density Lipoprotein 85 mg/dL; Sodium Level 140 mmol/L (136-145); Triglycerides 97 mg/dL; Very Low Density Lipoprotein 19 mg/dL (5-40)
[2022-07-20 12:00] LABS: H. Pylori Antibody (IgG) 2.03 (0.00-0.79)
[2022-07-24 15:07] LABS: Beef <0.10 kU/L (Class 0); Corn <0.10 kU/L (Class 0); Egg, Whole <0.10 kU/L (Class 0); Milk (Cow) <0.10 kU/L (Class 0); Peanut <0.10 kU/L (Class 0); Pork <0.10 kU/L (Class 0); Soybean <0.10 kU/L (Class 0); Wheat <0.10 kU/L (Class 0)
[2022-07-25 11:20] LABS: Chocolate <0.10 kU/L (Class 0)
== END | disposition home or self-care (01) ==
LOC: MFPLAB 10:55
PROVIDERS: PCP Family Medicine; Visit Provider Family Medicine
DX: E55.9 Vitamin D deficiency, unspecified (principal); R73.01 Impaired fasting glucose; K21.9 Gastro-esophageal reflux disease without esophagitis; Z13.220 Encounter for screening for lipoid disorders
CPT/HCPCS: 36415; 80053; 80061; 82306; 85025; 85652; 86003; 86005; 86677

== ENCOUNTER → 2022-08-23 | Outpatient (CLI) | payer MEDICARE, MEDICAID, SELFPAY ==
[2022-08-28 09:49] LABS: H. PYLORI STOOL AG Positive (Negative)
== END | disposition home or self-care (01) ==
LOC: MTLAB 12:34
PROVIDERS: PCP Family Medicine; Referring Provider Family Medicine; Visit Provider Family Medicine
DX: R76.8 Other specified abnormal immunological findings in serum (principal)
CPT/HCPCS: 87338

== ENCOUNTER → 2022-09-01 | Outpatient (CLI) | payer MEDICARE, MEDICAID, SELFPAY ==
--- NOTE | 2022-09-01 08:44 | US_ITS ---
STUDY: ABDOMINAL ULTRASOUND - RIGHT UPPER QUADRANT REASON FOR VISIT: Female, 67 years old GERD TECHNIQUE: Ultrasound evaluation of the right upper quadrant was performed with real-time and static martinez-scale imaging. TECHNICAL QUALITY: Adequate. COMPARISON: None. FINDINGS: Liver: The liver measures 14.1 cm. There is normal echogenicity of the liver. The bile ducts are within normal limits. There is hepatic color flow. The direction of portal flow is hepatopetal. There is a 2.9 cm x 3.5 cm x 2.5 cm cyst in the left lobe of the liver. Gallbladder: Normal distended gallbladder. The gallbladder wall measures 1.3 mm. There is a negative sonographic Conn''s sign. There is no pericholecystic fluid. There is a solitary echogenic gallstone within the gallbladder. The gallstone measures 1.5 cm x 1.4 cm x 1.2 cm. Common Bile Duct (C.B.D.): The common bile duct measures 4.8 mm. Pancreas: Normal size of the head, body of the pancreas. The tail portion is obscured due to overlying bowel gas. There is normal echogenicity of the pancreas. There is no demonstrated pancreatic mass or cyst. Right Kidney: Normal size of the right kidney. The right kidney measures 9.9 cm x 5.1 cm x 4 cm. Normal renal cortex. The right cortex measures 1.5 cm. There is no demonstrated renal mass or cyst. There is no right hydronephrosis. US/Abdomen Limited IMPRESSION: Solitary gallstone. 2.9 cm x 3.5 cm x 2.5 cm cyst in the left lobe of the liver. Electronically Signed: Connor Hartley MD at 14:07 EDT ,
== END | disposition home or self-care (01) ==
LOC: US 08:43
PROVIDERS: PCP Family Medicine; Referring Provider Family Medicine; Visit Provider Family Medicine
DX: K21.9 Gastro-esophageal reflux disease without esophagitis (principal)
CPT/HCPCS: 76705

== ENCOUNTER → 2022-10-03 | Outpatient (CLI) | payer MEDICARE, MEDICAID, SELFPAY ==
--- NOTE | 2022-10-03 09:31 | NM_ITS ---
CLINICAL: 67-year-old female with history of abdominal pain. RADIONUCLIDE HEPATOBILIARY SCINTIGRAPHY COMPARISON: Abdominal ultrasound report 09/01/2022 FINDINGS: Following the intravenous administration of 5.5 mCi of 99m Tc Mebrofenin, hepatobiliary images reveal: 1. Relatively prompt and homogeneous radiopharmaceutical concentration is noted by a normal sized liver. No parenchymal defects are identified. 2. Gallbladder activity is identified at 15 minutes post radiopharmaceutical administration. 3. Small intestinal tract is observed at 30 minutes following tracer injection. 4. Washout of the radiopharmaceutical by the hepatic parenchyma appears qualitatively normal. Cholecystokinin (0.02 ug/kg) was administered intravenously over a 30-minute period. The post CCK gallbladder ejection fraction calculated at 20 minutes following Cholecystokinin administration was noted to be < 5 % (normal greater than 35%). SC/Hepatobilliary Img w/Pharm Int IMPRESSION: 1. ABNORMAL 99m Tc Mebrofenin hepatobiliary imaging examination with Cholecystokinin. A. A gallbladder ejection fraction calculated to be less than 35% following the administration of Cholecystokinin is consistent with the presence of functional hepatobiliary disease (gallbladder and/or sphincter of Oddi dyskinesia) and/or organic hepatobiliary disease (chronic acalculous cholecystitis and/or cystic duct syndrome) in patients with intermediate to high pretest probabilities of hepatobiliary illness. (Konrad Zavala et al, Journal of Nuclear Medicine 32:1695, 1991). Electronically Signed: Raphael Haynes, at 21:47 EST ,
== END | disposition home or self-care (01) ==
LOC: NM 09:29
PROVIDERS: PCP Family Medicine; Visit Provider Family Medicine
DX: A04.8 Other specified bacterial intestinal infections (principal)
CPT/HCPCS: 78227; A9537; J2805

== ENCOUNTER → 2022-10-06 | Outpatient (CLI) | payer MEDICARE, MEDICAID, SELFPAY ==
[2022-10-11 11:26] LABS: H. PYLORI STOOL AG Negative (Negative)
== END | disposition home or self-care (01) ==
LOC: MTLAB 14:03
PROVIDERS: PCP Family Medicine; Referring Provider Family Medicine; Visit Provider Family Medicine
DX: K21.9 Gastro-esophageal reflux disease without esophagitis (principal)
CPT/HCPCS: 87338

== ENCOUNTER 2022-10-25 09:12 | Day surgery (SDC) | payer MEDICARE, MEDICAID, SELFPAY ==
[2022-10-25] VITALS (7 sets, daily range): BP systolic 134–161; BP diastolic 64–90; PULSE 66–80; RESP 16–18; TEMP 36.3–36.4; O2SAT 96–99; BMI 23.3
[2022-10-25] MEDS: Lactated Ringers 1,000 ML 15 ML IV (09:48)
--- NOTE | 2022-10-25 10:22 | PCM.HP.BLA ---
History and Physical Date of Admission: 10/25/22 Intake Vital Signs ? 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 Is patient in pain?: No Allergies Iodinated Contrast Media [CONTRASTS] Allergy (Verified 10/18/22 08:27) Itchingpollen extracts Allergy (Verified 10/18/22 08:27) Othersulfamethoxazole [From Bactrim] Adverse Reaction (Verified 10/18/22 08:27) Upset Stomachtrimethoprim [From Bactrim] Adverse Reaction (Verified 10/18/22 08:27) Upset Stomach Medications aspirin 81 mg chewable tablet 1 tab PO DAILY 01/04/20 [History Confirmed 10/18/22] baclofen 5 mg tablet 5 mg PO 10/18/22 [History Confirmed 10/18/22] baclofen 5 mg tablet 5 mg PO DAILY PRN 10/18/22 [History Confirmed 10/18/22] cetirizine 10 mg tablet 10 mg PO DAILY 10/18/22 [History Confirmed 10/18/22] omeprazole 40 mg capsule,delayed release 40 mg PO DAILY #60 caps 10/18/22 [Rx Confirmed 10/18/22] PFSH Medical History?(Updated 10/18/22 @ 10:[address] Corky Parisi MD) Acute bronchitis, unspecified Acute sinusitis, unspecified Chest pain DVT (deep venous thrombosis) Palpitations Surgical History? History of section History of left hip replacement History of tonsillectomy Family History? Mother?? Thrombophlebitis Social History? Smoking Status:? Never smoker alcohol intake:? never substance use type:? does not use caffeine:? Yes Type: coffee Number of servings: 3 HPI HPI HPI: Patient is a 67-year-old female here with some epigastric discomfort.? She reports she was recently treated for H. pylori.? She does not have right upper quadrant pain.? She said nothing gets worse or better with food. ROS General General: Yes weight change; No appetite, fatigue, colon cancer, breast cancer or weakness Additional Details: alternating weight loss and gain. HEENT HEENT: No difficulty swallowing, eye injury, eye surgery, swollen glands or hoarseness Endo Endocrine: No thyroid disease, diabetes mellitus, thyroid cancer, Hair loss, heat intolerance or cold intolerance Skin Skin: No rash or changing moles Breast Breast: No left breast lump, right breast lump, nipple discharge, breast pain, abnormal mammogram, abnormal US or breast enlargement Musc Musculoskeletal: Yes arthritis; No back problems, rheumatoid arthritis, gout or joint pain Cardio Cardiovascular: No murmur, pacemaker, heart disease, atrial fibrillation, high blood pressure, heart attack, heart stent, palpitations, shortness of breat with exertion or chest pain Psych Psychiatric: No depression, anxiety or hearing voices Resp Respiratory: No shortness of breath, No sleep apnea, No cough, No COPD, No asthma, No emphysema and No wheezing Gastro Gastrointestinal: No abdominal pain, Yes nausea or vomiting, No diarrhea, Yes constipation, No blood in stool, No acid reflux, No hemorrhoids, No ulcers, Yes gallbladder problem and No black,tarry stools Vern Hematologic: Yes blood thinners, No blood disorders, No bleeding, No anemia and Yes blood clots Neuro Neurologic: No system reviewed and no additional complaints, except as documented, No as per HPI, No abnormal gait, No abnormal hearing, No abnormal movements, No abnormal speech, No behavioral changes, No burning sensations, No confusion, No convulsions, No disequilibrium, No dizziness, No localized weakness, No frequent falls, No headache(s), No lack of coordination, No loss of vision, No memory loss, No numbness, No other visual disturbances, No radicular pain, No restless legs, No sensory deficit, No syncope, No tingling, No tremor(s), No weakness and No other Exam Const General: cooperative Orientation: alert and oriented x3 HENMT Head: normal to inspection Neck Neck: normal visual inspection and full ROM Chest Chest palpation & inspection: normal inspection of the chest Resp Effort & Inspection: normal respiratory effort Auscultation: clear to auscultation bilaterally Cardio Rate: regular rate Rhythm: regular rhythm GI Inspection: non-distended Palpation: soft and tender in the epigastrum Skin General: no rashes or lesions noted Neuro General: patient alert and patient oriented x3 Extrem General: full ROM Psych Appearance: grossly normal Mental Status: mental status grossly normal Assessment and Plan Assessment and Plan (1) Epigastric pain: ?Status:?Acute (2) Helicobacter pylori (H. pylori) infection: ?Status:?Acute ? ? ? Orders: Orders EGD Today ? Medications: New omeprazole 40 mg? PO DAILY 60 caps 0RF ? ? Plan The patient is having some epigastric discomfort.? Apparently she was recently treated for H. pylori infection.? She has never had an EGD.? She says the pain is in the epigastric region not the right upper quadrant.? She recently had an ultrasound shows a solitary gallstone in the gallbladder and she had a HIDA scan that showed less than 5% ejection fraction.? Patient is very apprehensive about getting a laparoscopic cholecystectomy.? I discussed first performing EGD to biopsy for reviewed the H. pylori and to check for ulceration.? If I find no ulceration I would more strongly recommend laparoscopic cholecystectomy.? If there is still ulceration or irritation from H. pylori I will perform biopsies to confirm eradication and continue PPI and Carafate treatment before performing laparoscopic cholecystectomy to see if these resolve the symptoms. I explained endoscopy in detail to the patient.? I explained the risks including but not limited to stroke or heart attack with anesthesia, perforation of the GI tract, bleeding, infection.? I explained that any of these could necessitate further emergency surgery.? The patient understands and all questions were answered sufficiently.? The patient wishes to proceed with procedure.? Corky Parisi MD Pager: [facility] [address] [place] [address], [address] [place] [address] Office: I have examined the patient and the H&P has been reviewed. There are no clinical changes since date of exam.
--- NOTE | 2022-10-25 10:30 | EGD_PTH ---
PATIENT: SHARON SAMANIEGO LOC: EN U#:[id number] AGE/SX: 67/F ROOM: RE10/25/[address]: Dr. Corky Parisi MD : 1955 BED: DIS: 10/25/2022 SPEC #: [id number] RECD: 10/25/22 11:12 STATUS: ROSALINA RENirali #: [id number] FAUSTINO: 10/25/22 10:[address]: Corky Parisi DEPT: SURGICAL PATHOLOGY RECD BY: Bianca Mccullough ENTERED: 10/25/22 13:01 SP TYPE: EGD BIOPSY OTHR DR: Dr. Moshe Jacob MD Tissues: Gastric mucous membrane Procedures: Surgery Specimen Level IV HEADER OPERATION: EGD with biopsy ([facility] [place]) PRE-OP DIAGNOSIS: Epigastric pain TISSUE SUBMITTED: Biopsy antrum for H. pylori and path MICROSCOPIC DIAGNOSIS Antrum, biopsy: Moderate chronic active gastritis. See comment. SJ:ananda 10/26/2022 COMMENT The results of immunohistochemistry for Helicobacter pylori will be reported separately ([id number]). MICROSCOPIC DESCRIPTION Slides are reviewed. GROSS DESCRIPTION Received in fixative is one container labeled with the patient's name and designated biopsy antrum. The specimen consists of multiple irregular fragments of light sanchez soft tissue that in aggregate measure 0.9 x 0.2 x 0.1 cm. The specimen is totally submitted in one cassette. / KAILYN:ananda 10/25/2022 TC:2 CPT: 43631
--- NOTE | 2022-10-25 10:30 | IMM_PTH ---
PATIENT: SHARON SAMANIEGO LOC: EN U#:[id number] AGE/SX: 67/F ROOM: RE10/25/[address]: Dr. Corky Parisi MD : 1955 BED: DIS: 10/25/2022 SPEC #: [id number] RECD: 10/25/22 13:58 STATUS: ROSALINA REQ #: [id number] FAUSTINO: 10/25/22 10:[address]: Corky Parisi DEPT: IMMUNOHISTOCHEMISTRY RECD BY: Delia Villa ENTERED: 10/25/22 13:59 SP TYPE: IMMUNO OTHR DR: Dr. Moshe Jacob MD Tissues: Stomach, NOS Procedures: H Pylori (initial) PHYSICIAN & INSTITUTION [place] [id number] SPECIMEN INFORMATION: Tissue Source: Antrum biopsy Clinical Info: Epigastric pain Specimen Number: [id number] CPT code: 02789 METHODOLOGY: Deparaffinized sections of prefer/formalin-fixed tissue or PAP/DQ stained slides are incubated with monoclonal/polyclonal antibodies/oligonucleotide probes. Localization is made via biotin free immunoperoxidase method. Appropriate controls are performed and reacted as expected. Results on target cell population are indicated in the following table: RESULTS: ANTIBODY / CLONE RESULT H Pylori (polyclonal) negative These tests were developed and their performance characteristics determined by [facility]. They may not have been cleared or approved by the [place]. Food and Drug Administration. The FDA has determined that such clearance or approval is not necessary. The above immunohistochemical/dualISH markers are ordered and reviewed by the Pathologist. INTERPRETATION: Antrum, biopsy: Negative for Helicobacter pylori organisms. SJ:ananda 10/26/2022
--- NOTE | 2022-10-25 10:47 | OP.EGD_ITS ---
Patient Name: Britta Holm Procedure Date: 10/25/2022 10:34 AM Date of : 1955 Age: 67 Procedure: Upper GI endoscopy Indications: Epigastric abdominal pain, Abdominal pain in the right upper quadrant, Follow-up of Helicobacter pylori Providers: Corky Parisi MD Medicines: Monitored Anesthesia Care Patient Profile: This is a 67 year old female. Refer to note in patient chart for documentation of history and physical. Complications: No immediate complications. Procedure: Pre-Anesthesia Assessment: - Prior to the procedure, a History and Physical was performed, and patient medications and allergies were reviewed. The patient's tolerance of previous anesthesia was also reviewed. The risks and benefits of the procedure and the sedation options and risks were discussed with the patient. All questions were answered, and informed consent was obtained. Prior Anticoagulants: The patient has taken no previous anticoagulant or antiplatelet agents. After reviewing the risks and benefits, the patient was deemed in satisfactory condition to undergo the procedure. After obtaining informed consent, the endoscope was passed under direct vision. Throughout the procedure, the patient's blood pressure, pulse, and oxygen saturations were monitored continuously. The Endoscope was introduced through the mouth, and advanced to the third part of duodenum. The upper GI endoscopy was accomplished without difficulty. The patient tolerated the procedure well. Scope In: 10:41:42 AM Scope Out: 10:43:27 AM Total Procedure Duration Time 0 hours 1 minute 45 seconds Findings: The esophagus was normal. The stomach was normal. The examined duodenum was normal. Biopsies were taken with a cold forceps in the gastric antrum for Helicobacter pylori testing. Impression: - Normal esophagus. - Normal stomach. - Normal examined duodenum. - Biopsies were taken with a cold forceps for Helicobacter pylori testing. Recommendation: - Discharge patient to home. - Resume previous diet. - Continue present medications. - Await pathology results. - Return to my office in 1 week. Procedure Code(s): --- Professional --- 83261, Esophagogastroduodenoscopy, flexible, transoral; with biopsy, single or multiple Diagnosis Code(s): --- Professional --- R10.13, Epigastric pain R10.11, Right upper quadrant pain B96.81, Helicobacter pylori [H. pylori] as the cause of diseases classified elsewhere CPT copyright 2017 [employer]. All rights reserved. The codes documented in this report are preliminary and upon editorial specialist review may be revised to meet current compliance requirements. Corky Parisi MD 10/25/2022 10:47:35 AM This report has been signed electronically. Number of Addenda: 0 Note Initiated On: 10/25/2022 10:34 AM
--- NOTE | 2022-10-25 10:48 | OP.CCLET_ITS ---
10/25/2022 Nikita Jacob [address] [place] [address] Re : Upper GI endoscopy procedure for Britta Holm Dear Dr. Jacob This procedure was performed on Tuesday, October 25, 2022. My impressions and recommendations are as follows: Impressions : - Normal esophagus. - Normal stomach. - Normal examined duodenum. - Biopsies were taken with a cold forceps for Helicobacter pylori testing. Recommendations : - Discharge patient to home. - Resume previous diet. - Continue present medications. - Await pathology results. - Return to my office in 1 week. My findings are described in the full procedure note, which is enclosed. If I can be of further assistance, please feel free to contact me at Doctor phone number(s): , Work: . Sincerely, Corky Parisi MD 10/25/2022 10:47:35 AM This report has been signed electronically.
== END 2022-10-25 11:34 | disposition home or self-care (01) ==
LOC: EN 09:14 → AC 09:15
PROVIDERS: PCP Family Medicine; Referring Provider Family Medicine; Visit Provider Surgery
PROC: 0DJ08ZZ Inspection of Upper Intestinal Tract, Via Natural or Artificial Opening Endoscopic (ICD-10-PCS; CPT 43235; principal; 2022-10-25 10:25)
DX: R10.13 Epigastric pain (principal); R10.11 Right upper quadrant pain; B96.81 Helicobacter pylori [H. pylori] as the cause of diseases classified elsewhere
CPT/HCPCS: 43239; 88305; 88342; J7120; J2405

== ENCOUNTER → 2023-02-03 | Outpatient (CLI) | payer MEDICARE, MEDICAID, SELFPAY ==
[2023-02-03 12:12] LABS: Absolute Lymphocyte Count 1.25 X10^3/uL (0.83-4.51); Absolute Neutrophil Count 2.4 X10^3/uL (2.0-7.7); Basophil# 0.06 X10^3/uL; Basophil% 1.4 % (0-1); Eosinophil# 0.16 X10^3/uL; Eosinophils% 3.7 % (0-5); Hematocrit 40.8 % (37-47); Hemoglobin 13.2 g/dL (12.0-15.0); Lymphocyte # 1.25 X10^3/ul (0.83-4.51); Lymphocyte % 29.1 % (19-41); Mean Corp Hgb Conc 32.4 g/dL (32-36); Mean Corpuscular Hgb 29.1 pg (27.0-32.0); Mean Corpuscular Volume 89.9 fL (81-99); Mean Platelet Vol. 9.9 fl (6.2-12.0); Monocyte# 0.43 X10^3/uL; NRBC Flagged by Analyzer 0 % (0-5); Neutrophil # 2.36 X10^3/uL (2.7-7.7); Neutrophil % 55.1 % (47-70); Platelet Count 318 K/mm3 (150-450); RBC Distribution Width CV 13.9 % (11.6-14.6); Red Blood Count 4.54 M/mm3 (4.2-5.4); White Blood Count 4.3 K/mm3 (4.4-11.0)
[2023-02-03 12:37] LABS: AST(SGOT) 23 U/L (15-37); Alanine Aminotransfer ALT/SGPT 36 U/L (13-56); Albumin, Serum 3.5 g/dL (3.2-5.0); Alkaline Phosphatase 71 U/L (45-117); Anion Gap 3 (5-15); BUN 19 mg/dL (7-18); Calcium,Total 8.9 mg/dL (8.5-10.1); Chloride 109 mmol/L (98-107); Cholesterol 203 mg/dL (200); Creatinine, Serum 0.66 mg/dL (0.55-1.02); EST Glomerular Filtration Rate 95 mL/min (>60); Est Glom Filt Rate - Afr Amer 115 mL/min (>60); Globulin 3.5 g/dL (2.2-4.2); Glucose 99 mg/dL (74-106); High Density Lipoprotein 88 mg/dL; Potassium 3.9 mmol/L (3.5-5.1); Sodium Level 139 mmol/L (136-145); Triglycerides 37 mg/dL; Very Low Density Lipoprotein 7 mg/dL (5-40)
[2023-02-03 12:43] LABS: Vitamin D,25 Hydroxy 106.4 ng/mL
== END | disposition home or self-care (01) ==
PROVIDERS: PCP Family Medicine; Referring Provider Family Medicine; Visit Provider Family Medicine
DX: K21.9 Gastro-esophageal reflux disease without esophagitis (principal); R73.01 Impaired fasting glucose; E55.9 Vitamin D deficiency, unspecified
CPT/HCPCS: 36415; 80053; 80061; 82306; 85025

== ENCOUNTER 2023-07-25 11:03 | Outpatient (CLI) | payer MEDICARE, MEDICAID, SELFPAY ==
[2023-07-25 12:01] LABS: Bacteria 0 SEEN /hpf (None Seen); Mucous, Urine 0 SEEN /hpf (<or=2+); Red Blood Cells-Urine 0 SEEN /hpf (0-5); Squamous Epithelial Cells - UA 0 SEEN /hpf (5-10); White Blood Cells 0 SEEN /hpf (0-5)
[2023-07-25 12:22] LABS: Erythrocyte Sedimentation Rate 10 mm/hr (0-30)
[2023-07-25 12:24] LABS: Absolute Lymphocyte Count 0.99 X10^3/uL (0.83-4.51); Absolute Neutrophil Count 1.7 X10^3/uL (2.0-7.7); Basophil# 0.05 X10^3/uL; Basophil% 1.6 % (0-1); Eosinophil# 0.15 X10^3/uL; Eosinophils% 4.7 % (0-5); Hematocrit 39.5 % (37-47); Hemoglobin 12.9 g/dL (12.0-15.0); Lymphocyte # 0.99 X10^3/ul (0.83-4.51); Lymphocyte % 31.1 % (19-41); Mean Corp Hgb Conc 32.7 g/dL (32-36); Mean Corpuscular Volume 91.9 fL (81-99); Mean Platelet Vol. 10.1 fl (6.2-12.0); Monocyte# 0.34 X10^3/uL; Monocyte% 10.7 % (0-10); NRBC Flagged by Analyzer 0 % (0-5); Neutrophil # 1.65 X10^3/uL (2.7-7.7); Neutrophil % 51.9 % (47-70); Platelet Count 287 K/mm3 (150-450); RBC Distribution Width CV 13.6 % (11.6-14.6); RBC Distribution Width SD 46.4 fl (35.1-43.9); White Blood Count 3.2 K/mm3 (4.4-11.0)
[2023-07-25 12:44] LABS: AST(SGOT) 18 U/L (15-37); Alanine Aminotransfer ALT/SGPT 26 U/L (13-56); Albumin, Serum 3.6 g/dL (3.2-5.0); Alkaline Phosphatase 77 U/L (45-117); Anion Gap 2 (5-15); BUN 18 mg/dL (7-18); BUN/Creat Ratio 28.5 RATIO (10-20); Chloride 108 mmol/L (98-107); Creatinine, Serum 0.63 mg/dL (0.55-1.02); EST Glomerular Filtration Rate 99 mL/min (>60); Est Glom Filt Rate - Afr Amer 120 mL/min (>60); Globulin 3.5 g/dL (2.2-4.2); Glucose 100 mg/dL (74-106); Potassium 3.7 mmol/L (3.5-5.1); Protein, Total 7.1 g/dL (6.4-8.2); Sodium Level 138 mmol/L (136-145)
[2023-07-25 17:56] LABS: Color, Urine Yellow (Yellow); Glucose, Dipstick Normal (Normal); Ketone-Dipstick Negative (Negative); Leukocyte Esterase-Dipstick Negative /ul (Negative); Nitrite-Dipstick Negative (Negative); Occult Blood-Urine Negative /ul (Negative); Protein-Dipstick Negative (Negative); Specific Gravity, Urine 1.015 (1.002-1.030); Urine Bilirubin Dipstick Negative (Negative); Urine Clarity Clear (Clear); Urine Urobilinogen Normal (Normal)
[2023-07-26 06:09] LABS: H. Pylori Antibody (IgG) 0.56 (0.00-0.79)
== END 2023-07-25 23:59 | disposition home or self-care (01) ==
LOC: MFPLAB 11:04
PROVIDERS: PCP Family Medicine; Visit Provider Family Medicine
DX: K82.9 Disease of gallbladder, unspecified (principal); K21.9 Gastro-esophageal reflux disease without esophagitis; R10.9 Unspecified abdominal pain
CPT/HCPCS: 36415; 80053; 81001; 85025; 85652; 86677; 87086

== ENCOUNTER → 2023-09-12 | Outpatient (CLI) | payer MEDICAID, MEDICARE, SELFPAY ==
[2023-09-12 15:15] LABS: Hematocrit 41.9 % (37-47); Hemoglobin 13.2 g/dL (12.0-15.0); Mean Corp Hgb Conc 31.5 g/dL (32-36); Mean Corpuscular Hgb 29.1 pg (27.0-32.0); Mean Corpuscular Volume 92.3 fL (81-99); Mean Platelet Vol. 10.4 fl (6.2-12.0); Platelet Count 329 K/mm3 (150-450); RBC Distribution Width CV 13.6 % (11.6-14.6); RBC Distribution Width SD 46.2 fl (35.1-43.9); Red Blood Count 4.54 M/mm3 (4.2-5.4); White Blood Count 3.4 K/mm3 (4.4-11.0)
[2023-09-12 15:34] LABS: Vitamin B12 502 pg/mL (211-911); Vitamin D,25 Hydroxy 145.2 ng/mL
[2023-09-12 15:50] LABS: Anion Gap 0 (5-15); BUN 19 mg/dL (7-18); BUN/Creat Ratio 26.3 RATIO (10-20); Calcium,Total 9.1 mg/dL (8.5-10.1); Chloride 108 mmol/L (98-107); Creatinine, Serum 0.72 mg/dL (0.55-1.02); EST Glomerular Filtration Rate 85 mL/min (>60); Est Glom Filt Rate - Afr Amer 103 mL/min (>60); Glucose 102 mg/dL (74-106); Iron 63 ug/dL (50-170); Potassium 4.3 mmol/L (3.5-5.1); Sodium Level 138 mmol/L (136-145); Thyroid Stim Hormone (TSH) 1.43 uIU/mL (0.358-3.74)
[2023-09-22 15:08] LABS: Zinc, Plasma or Serum 75 ug/dL (44-115)
== END | disposition home or self-care (01) ==
LOC: MFPLAB 12:17
PROVIDERS: PCP Family Medicine; Visit Provider Family Medicine
DX: L65.9 Nonscarring hair loss, unspecified (principal)
CPT/HCPCS: 36415; 80048; 82306; 82607; 83540; 84403; 84443; 84630; 85027

== ENCOUNTER → 2024-11-13 | Outpatient (CLI) | payer MEDICARE, MEDICAID, SELFPAY ==
--- NOTE | 2024-11-13 10:43 | CDU_ITS ---
Reason For Study: Paresthesia Rt. Velocities/BP Lt. Velocities/BP Prox CCA 74.3/17.1 cm/sec. Prox CCA 79.3/13.0 cm/sec. Mid CCA 60.0/20.4 cm/sec. Mid CCA 65.8/20.4 cm/sec. Dist CCA 54.5/21.5 cm/sec. Dist CCA 47.4/13.0 cm/sec. Prox ICA 57.8/22.6 cm/sec. Prox ICA 51.1/16.7 cm/sec. Mid ICA 73.2/27.0 cm/sec. Mid ICA 79.3/29.0 cm/sec. Dist ICA 100.1/25.5 cm/sec. Dist ICA 102.5/34.2 cm/sec. Rt. ICA/CCA = 1.7. Lt. ICA/CCA = 1.6. Prox ECA 80.9/16.0 cm/sec. Prox ECA 57.2/6.9 cm/sec. Rt. Vert. 33.7/4.9 cm/sec. Lt. Vert. 24.5/7.4 cm/sec. Right Extracranial There is intimal thickening but no significant atherosclerotic plaque noted in the right common carotid artery. There is heterogeneous, irregular atherosclerotic plaque noted in the right internal carotid artery. There is intimal thickening but no significant atherosclerotic plaque noted in the right external carotid artery. Antegrade flow is noted in the right vertebral artery. Left Extracranial There is intimal thickening but no significant atherosclerotic plaque noted in the left common carotid artery. There is heterogeneous, irregular atherosclerotic plaque noted in the left internal carotid artery. There is intimal thickening but no significant atherosclerotic plaque noted in the left external carotid artery. Antegrade flow is noted in the left vertebral artery. VL/Carotid Duplex Ultrasound Interpretation Summary Mild (<50%) stenosis right extracranial internal carotid. Mild (<50%) stenosis left extracranial internal carotid. Patent and antegrade vertebrals bilaterally. Ordering Physician: Zachery Martinez Referring Physician: Moshe Jacob MD Performed By: Anjana Zheng RVT and Student
--- NOTE | 2024-11-13 10:43 | EKG12_ITS ---
Test Reason : PARESTHESIA Blood Pressure : */* mmHG Vent. Rate : 73 BPM Atrial Rate : 73 BPM P-R Int : 150 ms QRS Dur : 84 ms QT Int : 390 ms P-R-T Axes : 71 66 54 degrees QTcB Int : 429 ms Normal sinus rhythm Normal ECG Confirmed by Matthew Danielle ([id number]), business editor KATIE FERRARI ([id number]) on 11/13/2024 2:15:21 PM Referred By: Zachery Martinez Confirmed By: Matthew Danielle
== END | disposition home or self-care (01) ==
LOC: CVS 10:40
PROVIDERS: PCP Family Medicine; Referring Provider Family Medicine; Visit Provider Family Medicine
DX: R20.2 Paresthesia of skin (principal)
CPT/HCPCS: 93005; 93880

== ENCOUNTER 2025-02-07 08:51 | Outpatient (CLI) | payer MEDICARE, MEDICAID, SELFPAY ==
[2025-02-07 10:47] LABS: Erythrocyte Sedimentation Rate 3 mm/hr (0-30)
[2025-02-07 10:49] LABS: Hematocrit 39.4 % (37-47); Hemoglobin 13.1 g/dL (12.0-15.0); Mean Corp Hgb Conc 33.2 g/dL (32-36); Mean Corpuscular Hgb 30.6 pg (27.0-32.0); Mean Corpuscular Volume 92.1 fL (81-99); Mean Platelet Vol. 10.1 fl (6.2-12.0); Platelet Count 295 K/mm3 (150-450); RBC Distribution Width CV 13.2 % (11.6-14.6); RBC Distribution Width SD 44.1 fl (35.1-43.9); Red Blood Count 4.28 M/mm3 (4.2-5.4); White Blood Count 3.2 K/mm3 (4.4-11.0)
[2025-02-07 11:42] LABS: ALB/GLOB Ratio 1.4 RATIO (0.9-2.4); AST(SGOT) 24 U/L (<=31); Alanine Aminotransfer ALT/SGPT 19 U/L (<=34); Albumin, Serum 4.1 g/dL (3.4-4.8); Alkaline Phosphatase 72 U/L (35-104); Anion Gap 10 (5-15); BUN 17 mg/dL (4-19); BUN/Creat Ratio 22.3 RATIO (10-20); Calcium,Total 9.5 mg/dL (7.6-11.0); Carbon Dioxide 25.1 mmol/L (21.0-32.0); Chloride 105 mmol/L (98-108); Cholesterol 221 mg/dL (<=200); Creatinine, Serum 0.77 mg/dL (0.70-1.20); EST Glomerular Filtration Rate 83 (>60); Globulin 2.9 g/dL (2.2-4.2); Glucose 92 mg/dL (70-99); High Density Lipoprotein 98 mg/dL; Low Density Lipoprotein Calc. 112 mg/dL; Sodium Level 140 mmol/L (133-145); Total Bilirubin 0.38 mg/dL (0.00-1.30); Triglycerides 52 mg/dL; Very Low Density Lipoprotein 10 mg/dL (5-40); cholesterol:hdl ratio screen 2.25
[2025-02-07 12:48] LABS: Hemoglobin A1c 5.8 % (<=5.6)
[2025-02-07 13:14] LABS: Iron 96 ug/dL (50-170)
[2025-02-07 13:19] LABS: Ferritin 48 ng/mL (22-378); Vitamin B12 571 pg/mL (180-914)
== END 2025-02-07 23:59 | disposition home or self-care (01) ==
LOC: MFPLAB 08:54
PROVIDERS: PCP Family Medicine; Referring Provider Family Medicine; Visit Provider Family Medicine
DX: R20.0 Anesthesia of skin (principal); E55.9 Vitamin D deficiency, unspecified; R73.01 Impaired fasting glucose
CPT/HCPCS: 36415; 80053; 80061; 82306; 82607; 82728; 83036; 83540; 84443; 85027; 85652

== ENCOUNTER → 2025-06-25 | Outpatient (CLI) | payer MEDICARE, MEDICAID, SELFPAY ==
--- NOTE | 2025-06-25 12:45 | RAD_ITS ---
PROCEDURE: LUMBAR SPINE 2 OR 3 VIEWS 06/25/2025 REASON FOR EXAM: R LOW BAKC PAIN TECHNIQUE: Lumbar spine two views COMPARISON: None FINDINGS: There is dextroscoliosis of the lumbar spine with Snowden angle = 11 degrees from T12-L5, apex L3. There is grade 1 spondylolisthesis at L3-4, 0.2 cm. There is grade 1 spondylolisthesis at L5-S1, 0.9 cm. There is loss of disc height which is most severe from L4-S1. There is severe facet sclerosis. Osteopenia is noted. Vascular calcifications are visible. Hardware is partly visible in the left hip. RAD/Lumbar Spine 2 or 3 Views IMPRESSION: There is dextroscoliosis of the lumbar spine with Snowden angle = 11 degrees from T12-L5, apex L3. There is grade 1 spondylolisthesis at L3-4, 0.2 cm. There is grade 1 spondylolisthesis at L5-S1, 0.9 cm. There is loss of disc height which is most severe from L4-S1. Reading Location: [facility]
== END | disposition home or self-care (01) ==
LOC: MTRAD 12:41
PROVIDERS: PCP Family Medicine; Referring Provider Family Medicine; Visit Provider Family Medicine
DX: M54.41 Lumbago with sciatica, right side (principal)
CPT/HCPCS: 72100

== ENCOUNTER 2025-07-16 09:55 | Outpatient (RCR) | payer MEDICARE, MEDICAID, SELFPAY ==
--- NOTE | 2025-07-16 12:17 | HP.PTEVAL_ITS ---
Patient's Visit Information Visit Information Visit Information: SHARON SAMANIEGO is a 70 year old F referred to Physical Therapy by Dr. Moshe Jacob MD with a diagnosis of LBP with R LE radiculopathy. Date of Evaluation: 07/16/25 Physical Therapist: Dominick Cash, PT, ATC Visit Plan Frequency: 2x /Week Duration: 2-4 Weeks Plan: Pt was issued REIL HEP. Assess benefit of HEP next visit. Incorporate L/S stab ex's and postural edu next visit. Subjective Subjective: Pt reports she has had LBP in the past. Pt notes this pain has been present for approximately 2 months. Pt notes the pain had an insidious onset in nature. 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 Pt reports prolonged sitting increases her pain. Pt notes she has had xrays which revealed degenerative changes in her L4-5 disc region. Pt reports her LBP will extend to her R knee region at times, but never gets to her feet. Pt reports occasional sleep difficulty at this time secondary to pain. Pt reports using good posture will help to decrease her pain. Pt also notes prolonged standing increases her pain. Pt notes using a hot pack helps to decrease her pain. 7/10 pain while sitting here at rest, 9/10 at worst. Pain LBP: Pain Intensity (Out of 10): 7 Pain Intensity Range: 9 Objective Objective: Neuro: B LE sensation is WNL to light touch MMT: B LE's are equal when compared bilaterally ROM: L/S ROM is WNL in all planes Repeated movements: RFIS 10x3 peripheralized sx's into L glute. MARYCRUZ 10x3 NE. REIL 10x2 better. Balance/Special Test Scores Oswestry Low Back Score: 10 Goals Goal 1:: Decrease LBP x 50% to aid with sleep Goal Time Frame: 2-4 Weeks Goal 2:: Decrease frequency and intensity of R LE radiculopathy x 50% to aid with ambulation Goal Time Frame: 2-4 Weeks Goal 3:: I with HEP Goal Time Frame: 2-4 Weeks Rehabilitation Potential Physical Therapy Diagnosis: Pt has LBP, R LE radiculopathy, and difficulty with sit to stand transfers secondary to L/S disc derangement Rehabilitation Potential: Good Anticipated Interventions Patient/Client Instruction: Educate patient on: Condition and Plan of Care For the Purpose of:: To improve self management Therapeutic Exercise to Include: Strength training, Body mechanics, Postural training, Dynamic Lumbar Stabilization and Yara Exercises For the Purpose of:: To decrease pain, To improve muscle performance and motor function and To increase tolerance to activity/condition/position Text: Thank you for the opportunity to evaluate your patient. For Medicare and Medicare HMO plans, please review the plan of care and approve it. It will need to be FAXED BACK to us at [phone] for Medicare purposes. For Medicare only, by signing this I certify the plan of care. Please let me know if there are questions or concerns regarding this plan of care. Physician Signature:____ Date:
--- NOTE | 2025-10-29 07:55 | HP.PT.NRP ---
Patient Information Patient Information: SHARON SAMANIEGO was seen in my office for initial evaluation on 07/16/25. The following Plan of Care was established for this patient: POC Established Initial Frequency: 2x /Week Initial Duration: 2-4 Weeks Anticipated Interventions Patient/Client Instruction: Educate patient on: Condition and Plan of Care For the Purpose of:: To improve self management Therapeutic Exercise to Include: Strength training, Body mechanics, Postural training, Dynamic Lumbar Stabilization and Yara Exercises For the Purpose of:: To decrease pain, To improve muscle performance and motor function and To increase tolerance to activity/condition/position Last Seen Last Seen: This patient was last seen in our office . Pertinent comments regarding their Physical therapy will appear below: Pt has not returned in greater than 30 days and is discontinued at this time. At this point I will be discontinuing this patient from physical therapy. I would be happy to see this patient again in the future if found appropriate by the physician. Thank you! Dominick Cash, PT, ATC Balance/Gait/Functional tests Balance/Special Test Scores Oswestry Low Back Score: 10
== END 2025-07-16 19:00 | disposition home or self-care (01) ==
LOC: PT 09:55
PROVIDERS: PCP Family Medicine; Referring Provider Family Medicine; Visit Provider Family Medicine
DX: M47.816 Spondylosis without myelopathy or radiculopathy, lumbar region (principal); M41.9 Scoliosis, unspecified
CPT/HCPCS: 97161

== ENCOUNTER 2025-08-11 08:28 | Outpatient (CLI) | payer MEDICARE, MEDICAID, SELFPAY ==
[2025-08-11 10:40] LABS: Hematocrit 38.8 % (37-47); Hemoglobin 13.0 g/dL (12.0-15.0); Mean Corp Hgb Conc 33.5 g/dL (32-36); Mean Corpuscular Volume 90.9 fL (81-99); Mean Platelet Vol. 9.9 fl (6.2-12.0); Platelet Count 308 K/mm3 (150-450); RBC Distribution Width CV 13.8 % (11.6-14.6); RBC Distribution Width SD 46.5 fl (35.1-43.9); Red Blood Count 4.27 M/mm3 (4.2-5.4); White Blood Count 3.3 K/mm3 (4.4-11.0)
[2025-08-11 11:13] LABS: AST(SGOT) 22 U/L (<=31); Alanine Aminotransfer ALT/SGPT 17 U/L (<=34); Albumin, Serum 4.0 g/dL (3.4-4.8); Alkaline Phosphatase 61 U/L (35-104); Anion Gap 9 (5-15); BUN 16 mg/dL (4-19); BUN/Creat Ratio 23.9 RATIO (10-20); Calcium,Total 9.2 mg/dL (7.6-11.0); Carbon Dioxide 24.5 mmol/L (21.0-32.0); Chloride 106 mmol/L (98-108); Cholesterol 202 mg/dL (<=200); Globulin 2.8 g/dL (2.2-4.2); Glucose 95 mg/dL (70-99); Low Density Lipoprotein Calc. 90 mg/dL; Potassium 3.8 mmol/L (3.3-5.1); Triglycerides 49 mg/dL; Very Low Density Lipoprotein 10 mg/dL (5-40); Vitamin D,25 Hydroxy 87.5 ng/mL (30-100); cholesterol:hdl ratio screen 1.98
== END 2025-08-11 23:59 | disposition home or self-care (01) ==
LOC: MFPLAB 08:29
PROVIDERS: PCP Family Medicine; Visit Provider Family Medicine
DX: R73.01 Impaired fasting glucose (principal); E55.9 Vitamin D deficiency, unspecified
CPT/HCPCS: 36415; 80053; 80061; 82306; 83036; 85027

== ENCOUNTER → 2025-08-27 | Outpatient (CLI) | payer MEDICARE, MEDICAID, SELFPAY ==
--- NOTE | 2025-08-27 13:03 | RAD_ITS ---
PROCEDURE: CERV SPINE 4 OR 5 VIEWS 08/27/2025 REASON FOR EXAM: BAEZA AND NECK PAIN TECHNIQUE: Procedure Code: [facility] Modality: DX Procedure: CERV SPINE 4 OR 5 VIEWS COMPARISON: None. FINDINGS: Vertebrae: No acute bony abnormalities. disc spaces: C4-C5, C5-C6 and C6-C7 disc space narrowing with sclerosis and marginal osteophytes. Left C4-C5 moderate foramina stenosis. C4-C5 foramina stenosis. Alignment: Normal alignment. soft tissues: No soft tissue abnormalities. RAD/Cerv Spine 4 or 5 Views IMPRESSION: Degenerate changes C4 through C7. Disclaimer: Reading Location: [id number]
--- NOTE | 2025-08-27 13:03 | RAD_ITS ---
PROCEDURE: CERV SPINE 4 OR 5 VIEWS 08/27/2025 REASON FOR EXAM: BAEZA AND NECK PAIN TECHNIQUE: Procedure Code: [facility] Modality: DX Procedure: CERV SPINE 4 OR 5 VIEWS COMPARISON: None. FINDINGS: Vertebrae: No acute bony abnormalities. disc spaces: C4-C5, C5-C6 and C6-C7 disc space narrowing with sclerosis and marginal osteophytes. Left C4-C5 moderate foramina stenosis. C4-C5 foramina stenosis. Alignment: Normal alignment. soft tissues: No soft tissue abnormalities. RAD/Cerv Spine 4 or 5 Views IMPRESSION: Degenerate changes C4 through C7. Disclaimer: Reading Location: [id number]
[2025-08-27 13:12] LABS: Mucous, Urine 0 SEEN /hpf (<or=2+)
[2025-08-27 15:25] LABS: Hematocrit 41.1 % (37-47); Hemoglobin 13.5 g/dL (12.0-15.0); Mean Corp Hgb Conc 32.8 g/dL (32-36); Mean Corpuscular Volume 93.2 fL (81-99); Mean Platelet Vol. 10.2 fl (6.2-12.0); Platelet Count 326 K/mm3 (150-450); RBC Distribution Width CV 13.7 % (11.6-14.6); RBC Distribution Width SD 46.8 fl (35.1-43.9); Red Blood Count 4.41 M/mm3 (4.2-5.4); White Blood Count 5.1 K/mm3 (4.4-11.0)
[2025-08-27 16:14] LABS: AST(SGOT) 27 U/L (<=31); Alanine Aminotransfer ALT/SGPT 20 U/L (<=34); Albumin, Serum 4.4 g/dL (3.4-4.8); Alkaline Phosphatase 68 U/L (35-104); Anion Gap 11 (5-15); BUN 20 mg/dL (4-19); BUN/Creat Ratio 30.6 RATIO (10-20); Calcium,Total 9.3 mg/dL (7.6-11.0); Carbon Dioxide 23.9 mmol/L (21.0-32.0); Chloride 104 mmol/L (98-108); Globulin 2.7 g/dL (2.2-4.2); Glucose 101 mg/dL (70-99); Iron 86 ug/dL (50-170); Potassium 4.1 mmol/L (3.3-5.1); Vitamin B12 1796 pg/mL (180-914); Vitamin D,25 Hydroxy 98.3 ng/mL (30-100)
[2025-08-27 16:59] LABS: Color, Urine Straw (Yellow); Glucose, Dipstick Normal (Normal); Ketone-Dipstick Negative (Negative); Leukocyte Esterase-Dipstick Negative /ul (Negative); Nitrite-Dipstick Negative (Negative); Occult Blood-Urine Negative /ul (Negative); Protein-Dipstick Negative (Negative); Specific Gravity, Urine 1.020 (1.002-1.030); Urine Bilirubin Dipstick Negative (Negative)
[2025-08-27 21:24] LABS: Red Blood Cells-Urine 0-5 SEEN /hpf (0-5); Squamous Epithelial Cells - UA 0-5 SEEN /hpf (5-10)
== END | disposition home or self-care (01) ==
LOC: MTLAB 13:03
PROVIDERS: PCP Family Medicine; Referring Provider Family Medicine; Visit Provider Family Medicine
DX: M50.30 Other cervical disc degeneration, unspecified cervical region (principal); R53.83 Other fatigue
CPT/HCPCS: 72050; 80053; 81001; 82306; 82607; 83540; 84443; 85027

== ENCOUNTER → 2025-09-19 | Outpatient (CLI) | payer MEDICARE, MEDICAID, SELFPAY ==
--- NOTE | 2025-09-19 11:18 | RAD_ITS ---
PROCEDURE: CHEST PA AND LATERAL 09/19/2025 REASON FOR EXAM: COUGH TECHNIQUE: Procedure Code: RADCXR Modality: DX Procedure: CHEST PA AND LATERAL FINDINGS: Chronic fibro emphysematous changes are noted within the lungs without airspace consolidation or pleural effusion. The cardiac silhouette is borderline enlarged when accounting for lung volumes. Moderate thoracic spondylosis. RAD/Chest PA and Lateral IMPRESSION: As above. Reading Location: [id number]
== END | disposition home or self-care (01) ==
LOC: MTRAD 11:18
PROVIDERS: PCP Family Medicine; Referring Provider Physician Assistant Surgical; Visit Provider Physician Assistant Surgical
DX: R05.9 Cough, unspecified (principal)
CPT/HCPCS: 71046

== ENCOUNTER → 2025-09-30 | Outpatient (CLI) | payer MEDICARE, MEDICAID, SELFPAY ==
--- NOTE | 2025-09-30 15:10 | MRI_ITS ---
PROCEDURE: BRAIN WITHOUT CONTRAST 09/30/2025 REASON FOR EXAM: HEADACHES TECHNIQUE: Procedure Code: MRIBR Modality: MR Procedure: BRAIN WITHOUT CONTRAST Multiplanar and multisequence images were obtained. FINDINGS: The cerebellar tonsils are at the level of the foramen magnum, not significant enough to represent a Chiari 1 malformation. A couple nonspecific foci of FLAIR hyperintensity are noted within the right cerebral white matter. Otherwise the brain parenchyma appears unremarkable. The martinez-white matter differentiation is appropriate. The ventricles are normal in size and configuration. No midline shift. The midline structures are intact, specifically the corpus callosum, septum pellucidum, pituitary gland, and cerebellar vermis. Minimal to mild bilateral maxillary sinusitis. Trace fluid may be present within the right mastoid air cells. Diffusion-weighted images demonstrate no restricted diffusion. MRI/Brain without Contrast IMPRESSION: 1. Mild inferior cerebellar tonsillar ectopia. This is not significant enough to represent a Chiari 1 malformation, however this can result in crowding at the cervicomedullary junction. 2. A couple of nonspecific FLAIR hyperintense foci within the right cerebral w rosey matter. Similar findings can be seen in patients experiencing migraine headaches. 3. Minimal to mild bilateral maxillary sinusitis. Probable trace right mastoi d effusion. Reading Location: [id number]
== END | disposition home or self-care (01) ==
LOC: OPMRI 15:09
PROVIDERS: PCP Family Medicine; Referring Provider Family Medicine; Visit Provider Family Medicine
DX: R51.9 Headache, unspecified (principal)
CPT/HCPCS: 70551